=== PATIENT | male | born 1970 | race African-American/Black ===

== ENCOUNTER 2018-09-17 19:31 | Inpatient (IN) | END 2018-09-25 15:10 | disposition home or self-care (01) | DRG 439 ==

== ENCOUNTER 2018-10-13 12:00 | Inpatient (IN) | END 2018-10-16 15:00 | disposition home or self-care (01) | DRG 196 ==

== ENCOUNTER 2019-01-09 16:48 | Inpatient (IN) | payer BC ==
[~2019-01-09] VITALS: Ht 180.3 cm; Wt 72.8 kg
[~2019-01-09 16:48] MED LIST: ALBU18HF INHALATION; LISI10TA2 PO; PRED20TA PO
[2019-01-09] MEDS ORDERED: SODIUM CHLORIDE 0.9% 1L BAG IV* STA (17:26)
[2019-01-09] MEDS ORDERED: METHYLPREDNISOLONE 125 MG INJ IV STA (17:28)
[2019-01-09] MEDS ORDERED: IPRATROPIUM (NEB) 0.5 MG/2.5 ML AMP INH STA (17:28)
[2019-01-09] MEDS ORDERED: ALBUTEROL 0.5% (NEB) 2.5 MG/0.5 ML AMP INH STA (17:28)
[2019-01-09] MEDS ORDERED: CEFTRIAXONE 1 GM/50 ML (PMX) 50 ML IVPB ONE (17:30)
[2019-01-09] MEDS ORDERED: IBUPROFEN 600 MG TAB PO ONE (17:30)
[2019-01-09] MEDS ORDERED: LORAZEPAM 0.5 MG TAB PO ONE (17:30)
--- NOTE | 2019-01-09 17:41 | ERD ---
ER Documentation Chief Complaint Chief Complaint WHEEZING, SOB, COUGH, HX OF ASTHMA HPI 48-year-old man with a history of right apical pneumonia, sarcoidosis, and asthma presents with cough, shortness of breath, congestion times 1 week. He states he has had tactile fevers. He denies recent travel or antibiotic use, no calf or leg swelling, no chest pain, no headache or blurry vision, no vomiting or diarrhea. ROS All systems reviewed and are negative except as per history of present illness. Medications Home Meds Reported Medications Albuterol Sulfate* (Ventolin HFA*) 18 Gm Hfa.aer.ad, 2 PUFF INHALATION Q4H, #1 INHALER 10/13/18 Lisinopril* (Lisinopril*) 10 Mg Tablet, 10 MG PO DAILY, #30 TAB 10/13/18 Prednisone* (Prednisone*) 20 Mg Tab, 20 MG PO DAILY, TAB 10/13/18 Allergies Allergies: Coded Allergies: shellfish derived (Verified Allergy, Unknown, 01/09/19) PMhx/Soc Sarcoidosis, history of right-sided pneumothorax, hypertension, alcoholism, pulmonary hypertension, emphysema History of Surgery: Yes (CHEST TUNE PLACEMENT) Anesthesia Reaction: No Hx Neurological Disorder: No Hx Respiratory Disorders: Yes ( ASTHMA, COPD) Hx Cardiac Disorders: Yes (HTN) Hx Psychiatric Problems: No Hx Miscellaneous Medical Probl: No Hx Alcohol Use: Yes (OCCASIONAL) Hx Substance Use: No Hx Tobacco Use: No FmHx Family History: No diabetes Physical Exam Vitals Vital Signs Date Temp Pulse Resp B/P (MAP) Pulse Ox O2 O2 Flow FiO2 Time Delivery Rate 01/09/19 89 30 87 21 18:10 01/09/19 Nasal 17:20 Cannula 01/09/19 101.3 96 24 117/75 98 16:52 (89) Physical Exam GENERAL: Well-developed, well-nourished, appears anxious, febrile HEENT: Moist mucous membranes, pink conjunctiva, no cervical spine tenderness or step-off deformities, no goiter, no jaundice or icterus, extraocular movements intact without pain. No submandibular induration, and no pharyngeal erythema NEURO: Alert and oriented 3, cranial nerves II through XII intact bilaterally, pupils equal round reactive to light, no focal deficits or facial asymmetry, sensation intact distally Strength 5/5 in upper and lower extremities bilaterally CARDIAC: Regular rate and rhythm, no murmurs rubs or gallops LUNGS: Dense wheezes bilaterally, crackles at the bases, no stridor ABDOMEN: Soft nontender, no guarding, no rigidity, no rebound, no psoas sign no obturator sign. Normoactive bowel sounds SKIN: Warm and dry to touch, no abrasions, contusions, or hematomas, no lacerations, no ecchymosis, no target lesions, and without ulcers EXTREMITIES: No clubbing cyanosis or edema, calves are bilaterally symmetrical, no Homans sign, no popliteal cord sign. Distal pulses equal and bilateral PSYCH: Anxious Result Diagram: 01/09/19 1802 01/09/19 180 Results 24 hrs Laboratory Tests Test 01/09/19 18:00 01/09/19 18:02 POC Venous Lactate 0.7 mmol/L White Blood Count 8.1 10^3/ul Red Blood Count 4.10 10^6/ul Hemoglobin 12.6 g/dl Hematocrit 38.5 % Mean Corpuscular Volume 93.9 fl Mean Corpuscular Hemoglobin 30.7 pg Mean Corpuscular Hemoglobin Concent 32.7 g/dl Red Cell Distribution Width 13.5 % Platelet Count 457 10^3/UL Mean Platelet Volume 8.3 fl Immature Granulocytes % 1.000 % Neutrophils % 69.0 % Lymphocytes % 13.0 % Monocytes % 13.0 % Eosinophils % 3.6 % Basophils % 0.4 % Nucleated Red Blood Cells % 0.0 /100WBC Immature Granulocytes # 0.080 10^3/ul Neutrophils # 5.6 10^3/ul Lymphocytes # 1.1 10^3/ul Monocytes # 1.1 10^3/ul Eosinophils # 0.3 10^3/ul Basophils # 0.0 10^3/ul Nucleated Red Blood Cells # 0.0 10^3/ul Prothrombin Time 12.1 Sec Prothrombin Time Ratio 0.9 INR International Normalized Ratio 0.89 Activated Partial Thromboplast Time 35.3 Sec Sodium Level 135 mmol/L Potassium Level 4.0 mmol/L Chloride Level 103 mmol/L Carbon Dioxide Level 23 mmol/L Anion Gap 9 Blood Urea Nitrogen 13 mg/dl Creatinine 0.77 mg/dl Est Glomerular Filtrat Rate mL/min > 60 mL/min Glucose Level 77 mg/dl Calcium Level 8.4 mg/dl Total Bilirubin 0.2 mg/dl Direct Bilirubin 0.00 mg/dl Indirect Bilirubin 0.2 mg/dl Aspartate Amino Transf (AST/SGOT) 20 IU/L Alanine Aminotransferase (ALT/SGPT) 15 IU/L Alkaline Phosphatase 84 IU/L Troponin I < 0.012 ng/ml B-Type Natriuretic Peptide 79 PG/ML Total Protein 6.1 g/dl Albumin 3.2 g/dl Globulin 2.90 g/dl Albumin/Globulin Ratio 1.10 Lipase 62 U/L Ethyl Alcohol Level < 10.0 mg/dl Current Medications Medications Dose Sig/Jian Start Time Status Last (Trade) Ordered Route PRN Stop Time Admin Dose Reason Admin Sodium 2,000 ml BOLUS OVER 2 01/09/19 DC 01/09/19 Chloride HOURS STAT 17:26 18:07 (NS) IV* 01/09/19 17:29 Albuterol 10 mg ONCE STAT 01/09/19 DC 01/09/19 (Proventil INH 17:28 18:09 0.5% (Neb)) 01/09/19 17:31 Ipratropium 1 mg ONCE STAT 01/09/19 DC 01/09/19 [place] INH 17:28 18:09 (Atrovent 01/09/19 17:31 0.02% (Neb)) 125 mg ONCE STAT 01/09/19 DC 01/09/19 Methylprednis IV 17:28 18:07 olone Sodium 01/09/19 17:31 Succinate (Solu-Medrol) Ibuprofen 600 mg ONCE ONCE 01/09/19 DC 01/09/19 (Motrin) PO 17:30 18:08 01/09/19 17:31 Ceftriaxone 50 ml @ ONCE ONCE 01/09/19 DC 01/09/19 Sodium 100 mls/hr IVPB 17:30 18:07 01/09/19 17:59 Lorazepam 0.5 mg ONCE ONCE 01/09/19 DC 01/09/19 (Ativan) PO 17:30 18:08 01/09/19 17:31 Morphine 4 mg ONCE STAT 01/09/19 DC 01/09/19 Sulfate IV 19:02 19:24 (morphine) 01/09/19 19:03 Procedures/MDM IV line was established 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 Patient was febrile, blood and urine cultures have been ordered results are pending I will follow-up. I do not suspect sepsis. EKG performed, read by me revealed a normal sinus rhythm at 87 bpm, normal axis, narrow QRS complex, no concerning ST elevations or depressions noted. Chest X-ray 1V Interpreted by me: Soft Tissue: No acute abnormalities Bones: No acute abnormalities Mediastinum/Cardiac Silhouette/Lungs: Sclerotic densities in the upper lobes bilaterally, no acute infiltrates I administered 2 L normal saline IV, albuterol 10 mg via nebulizer, ipratropium 1 mg via nebulizer, methylprednisolone 125 mg IV x1, ceftriaxone 1 g IV, ibuprofen 600 mg p.o., and later morphine 4 mg IV x1 CBC was unremarkable, electrolytes normal, liver function tests normal, troponin was negative, lactic acid level was low. I do not suspect sepsis. Influenza AB swabs were negative Patient has continued dyspnea and wheezing and will be admitted to telemetry for continued medical management and bronchodilator therapy. Departure Diagnosis: Primary Impression: Sarcoidosis of lung Additional Impressions: Reactive airway disease Asthma severity: severe Asthma persistence: persistent Asthma complication type: with acute exacerbation Qualified Codes: J45.51 - Severe persistent asthma with (acute) exacerbation Hypertension Hypertension type: essential hypertension Qualified Codes: I10 - Essential (primary) hypertension Acute bronchitis Bronchitis organism: unspecified organism Qualified Codes: J20.9 - Acute bronchitis, unspecified Condition: MARK Velasco MD Jan 09, 2019 17:41
[2019-01-09] MEDS ORDERED: morphine 4 MG/ML VIAL IV STA (19:02)
[2019-01-09] MEDS ORDERED: NITROGLYCERIN (SL) 0.4 MG TAB SL PRN (19:30)
[2019-01-09] MEDS ORDERED: ENALAPRILAT 1.25 MG INJ IV ONE (19:30)
[2019-01-09] MEDS ORDERED: ACETAMINOPHEN 325 MG TAB PO PRN (19:30)
[2019-01-09] MEDS ORDERED: NACL 0.9% 3 ML SYG IV SCH (19:30)
[2019-01-09] MEDS ORDERED: ONDANSETRON 4 MG INJ IV PRN (19:30)
[2019-01-09 21:49] VITALS: Ht 180.3 cm; Wt 72.8 kg
[2019-01-09 22:25] VITALS: BP 112/66; PULSE 88; RESP 22
--- NOTE | 2019-01-09 22:39 | HP ---
Date/Time of Note Date/Time of Note DATE: 01/09/19 TIME: 22:39 Assessment/Plan VTE Prophylaxis Pharmacological prophylaxis: heparin Lines/Catheters IV Catheter Type (from Nrsg): Saline Lock Assessment/Plan Assessment/Plan 48-year-old male with a history of sarcoidosis, reactive airway disease, alcoholic pancreatitis and history of spontaneous pneumothorax presents with shortness of breath and found to be hypoxic with chest x-ray showing stable chr onic fibrotic change. PLAN -Supplemental oxygen, bronchodilators, steroid -Pulmonary consult -Continue lisinopril for hypertension Result Diagram: 01/09/19 1802 01/09/19 1802 Results 24hrs Laboratory Tests Test 01/09/19 18:00 01/09/19 18:02 POC Venous Lactate 0.7 White Blood Count 8.1 # Red Blood Count 4.10 L Hemoglobin 12.6 L Hematocrit 38.5 L Mean Corpuscular Volume 93.9 Mean Corpuscular Hemoglobin 30.7 Mean Corpuscular Hemoglobin Concent 32.7 Red Cell Distribution Width 13.5 Platelet Count 457 #H Mean Platelet Volume 8.3 Immature Granulocytes % 1.000 H Neutrophils % 69.0 Lymphocytes % 13.0 L Monocytes % 13.0 H Eosinophils % 3.6 Basophils % 0.4 Nucleated Red Blood Cells % 0.0 Immature Granulocytes # 0.080 H Neutrophils # 5.6 Lymphocytes # 1.1 Monocytes # 1.1 H Eosinophils # 0.3 Basophils # 0.0 Nucleated Red Blood Cells # 0.0 Prothrombin Time 12.1 Prothrombin Time Ratio 0.9 INR International Normalized Ratio 0.89 Activated Partial Thromboplast Time 35.3 H Sodium Level 135 Potassium Level 4.0 Chloride Level 103 Carbon Dioxide Level 23 Anion Gap 9 Blood Urea Nitrogen 13 Creatinine 0.77 Est Glomerular Filtrat Rate mL/min > 60 Glucose Level 77 Calcium Level 8.4 Total Bilirubin 0.2 Direct Bilirubin 0.00 Indirect Bilirubin 0.2 Aspartate Amino Transf (AST/SGOT) 20 Alanine Aminotransferase (ALT/SGPT) 15 Alkaline Phosphatase 84 Troponin I < 0.012 B-Type Natriuretic Peptide 79 Total Protein 6.1 Albumin 3.2 L Globulin 2.90 Albumin/Globulin Ratio 1.10 Lipase 62 Ethyl Alcohol Level < 10.0 H HPI/ROS Admit Date/Time Admit Date/Time Jan 09, 2019 at 19:04 Hx of Present Illness This is a 48-year-old male with a history of sarcoidosis, reactive airway disease, alcoholic pancreatitis, spontaneous pneumothorax who presented to ER complaining of shortness of breath. Patient has chronic shortness of breath but that acutely worsened. In ER, he was hypoxic with the lowest O2 sat of 87% on room air. Chest x-ray shows chronic fibrotic changes predominate within the upper lobes are stable compared to 12/26/2018 without evidence for acute superimposed pneumonia. PMH/Family/Social Past Medical History Medical History: other (See HPI) Medications Current Medications IV Flush (NS 3 ml) 3 ml PER PROTOCOL IV ; Start 01/09/19 at 19:30 Ondansetron HCl (Zofran Inj) 4 mg Q6H PRN IV NAUSEA/VOMITING; Start 01/09/19 at 19:30 Nitroglycerin (Nitroglycerin (Sl Tab) 0.4 Mg) 1 tab Q5M PRN SL .CHEST PAIN; Start 01/09/19 at 19:30 Acetaminophen (Tylenol Tab) 650 mg Q6H PRN PO .PAIN 1-3 OR TEMP; Start 01/09/19 at 19:30 Coded Allergies: shellfish derived (Verified Allergy, Unknown, 01/09/19) Past Surgical History Past Surgical Hx: other (See HPI) Family History Significant Family History: no pertinent family hx Social History Alcohol Use: other (History of EtOH) Smoking Status: Former smoker Drug Use: none Exam/Review of Systems Vital Signs Vitals Vital Signs Date Temp Pulse Resp B/P (MAP) Pulse Ox O2 O2 Flow FiO2 Time Delivery Rate 01/09/19 98.5 88 22 112/66 100 Nasal 2.0 22:25 (81) Cannula 01/09/19 21 18:10 Exam Constitutional: alert, oriented, well developed Head: normocephalic, atraumatic Eyes: EOMI, PERRL Respiratory: diminished breath sounds Cardiovascular: regular rate and rhythm, nl pulses Gastrointestinal: soft, non-tender Extremities: normal pulses RAZA WILSON MD Jan 09, 2019 22:39
[2019-01-09 23:53] VITALS: BP 118/65; RESP 20
[2019-01-10] VITALS (11 sets, daily range): BP systolic 113–135; BP diastolic 64–82; PULSE 55–77; RESP 20–22
[2019-01-10] MEDS: HYDROCODONE/APAP (5/325) TAB PO PRN ×2 (05:30→11:37)
[2019-01-10] MEDS: ALBUTEROL/IPRATROPIUM (NEB) 3 ML AMP HHN PRN ×2 (05:32→09:59)
[2019-01-10] MEDS: LISINOPRIL 10 MG TAB PO SCH (08:27)
[2019-01-10] MEDS ORDERED: METHYLPREDNISOLONE 125 MG INJ IV SCH (09:00)
[2019-01-10] MEDS ORDERED: CEPASTAT LOZENGE MT PRN (13:30)
[2019-01-10] MEDS ORDERED: GUAIFENESIN 20 MG/ML 5ML CUP PO PRN (13:30)
[2019-01-10] MEDS ORDERED: ALBUTEROL/IPRATROPIUM (NEB) 3 ML AMP HHN SCH ×2 (14:00→17:00)
[2019-01-10] MEDS ORDERED: ALBUTEROL/IPRATROPIUM (NEB) 3 ML AMP HHN PRN ×2 (14:00→15:30)
--- NOTE | 2019-01-10 14:00 | PN ---
Date/Time of Note Date/Time of Note DATE: 01/10/19 TIME: 13:55 Assessment/Plan VTE Prophylaxis Risk score (from Ns)>0 risk: 2 SCD applied (from Nsg): Yes Pharmacological prophylaxis: other Lines/Catheters IV Catheter Type (from Nrs): Saline Lock Assessment/Plan Hospital Course S: Patient still with significant shortness of breath and coughing symptoms, slightly relieved with breathing treatment given earlier. Waiting to be seen by pulmonary team. O: VS - see below PE: GENERAL: Well-developed, well-nourished, appears anxious HEENT: Moist mucous membranes, pink conjunctiva, no jaundice or icterus, e xtraocular movements intact without pain. No submandibular induration, and no pharyngeal erythema NEURO: No focal deficits CARDIAC: Regular rate and rhythm, no murmurs rubs or gallops LUNGS: Still some positive wheezes bilaterally, crackles at the bases, no stridor ABDOMEN: Soft nontender, no guarding, no rigidity, no rebound, no psoas sign no obturator sign. Normoactive bowel sounds EXTREMITIES: No lower extremity edema bilaterally PSYCH: Anxious Assessment/Plan: 48-year-old male with a history of sarcoidosis, reactive airway disease, alcoholic pancreatitis and history of spontaneous pneumothorax presents with shortness of breath and found to be hypoxic with chest x-ray showing stable chronic fibrotic change. PLAN -Supplemental oxygen, bronchodilators, steroid, add antitussives -Will obtain pulmonary consult -Continue lisinopril for hypertension Result Diagram: 01/10/1924 01/10/1924 Results 24hrs Laboratory Tests Test 01/09/19 18:00 01/09/19 18:02 01/09/19 22:18 01/10/19 05:24 POC Venous Lactate 0.7 White Blood Count 8.1 # 5.5 # Red Blood Count 4.10 L 3.85 L Hemoglobin 12.6 L 11.9 L Hematocrit 38.5 L 36.9 L Mean Corpuscular 93.9 95.8 Volume Mean Corpuscular 30.7 30.9 Hemoglobin Mean Corpuscular 32.7 32.2 Hemoglobin Concent Red Cell 13.5 13.2 Distribution Width Platelet Count 457 #H 430 H Mean Platelet Volume 8.3 8.6 Immature 1.000 H 0.900 H Granulocytes % Neutrophils % 69.0 86.8 H Lymphocytes % 13.0 L 8.6 L Monocytes % 13.0 H 3.3 Eosinophils % 3.6 0.2 Basophils % 0.4 0.2 Nucleated Red Blood 0.0 0.0 Cells % Immature 0.080 H 0.050 H Granulocytes # Neutrophils # 5.6 4.8 Lymphocytes # 1.1 0.5 L Monocytes # 1.1 H 0.2 L Eosinophils # 0.3 0.0 Basophils # 0.0 0.0 Nucleated Red Blood 0.0 0.0 Cells # Prothrombin Time 12.1 Prothrombin Time 0.9 Ratio INR International 0.89 Normalized Ratio Activated 35.3 H Partial Thromboplast Time Sodium Level 135 136 Potassium Level 4.0 5.2 H Chloride Level 103 106 Carbon Dioxide Level 23 25 Anion Gap 9 5 Blood Urea Nitrogen 13 18 Creatinine 0.77 0.79 Est Glomerular > 60 > 60 Filtrat Rate mL/min Glucose Level 77 192 # Calcium Level 8.4 8.2 L Total Bilirubin 0.2 0.0 L Direct Bilirubin 0.00 0.00 Indirect Bilirubin 0.2 0.0 Aspartate Amino 20 17 Transf (AST/SGOT) Alanine 15 15 Aminotransferase (AL T/SGPT) Alkaline Phosphatase 84 82 Troponin I < 0.012 B-Type Natriuretic 79 Peptide Total Protein 6.1 5.7 L Albumin 3.2 L 2.9 L Globulin 2.90 2.80 Albumin/Globulin 1.10 1.03 Ratio Lipase 62 Ethyl Alcohol Level < 10.0 H Lactic Acid Level 1.6 Hemoglobin A1c 6.1 H Magnesium Level 1.9 Exam/Review of Systems Exam Vitals Vital Signs Date Temp Pulse Resp B/P (MAP) Pulse Ox O2 O2 Flow FiO2 Time Delivery Rate 01/10/19 65 12:00 01/10/19 97.5 22 125/78 95 11:40 (94) 01/10/19 Nasal 2.0 10:03 Cannula 01/09/19 21 18:10 Intake and Output 01/09/19 01/09/19 01/10/19 1414:59 22:59 06:59 IntakeIntake Total 750 ml BalanceBalance 750 ml Results Results 24hrs Laboratory Tests Test 01/09/19 18:00 01/09/19 18:02 01/09/19 22:18 01/10/19 05:24 POC Venous Lactate 0.7 White Blood Count 8.1 # 5.5 # Red Blood Count 4.10 L 3.85 L Hemoglobin 12.6 L 11.9 L Hematocrit 38.5 L 36.9 L Mean Corpuscular 93.9 95.8 Volume Mean Corpuscular 30.7 30.9 Hemoglobin Mean Corpuscular 32.7 32.2 Hemoglobin Concent Red Cell 13.5 13.2 Distribution Width Platelet Count 457 #H 430 H Mean Platelet Volume 8.3 8.6 Immature 1.000 H 0.900 H Granulocytes % Neutrophils % 69.0 86.8 H Lymphocytes % 13.0 L 8.6 L Monocytes % 13.0 H 3.3 Eosinophils % 3.6 0.2 Basophils % 0.4 0.2 Nucleated Red Blood 0.0 0.0 Cells % Immature 0.080 H 0.050 H Granulocytes # Neutrophils # 5.6 4.8 Lymphocytes # 1.1 0.5 L Monocytes # 1.1 H 0.2 L Eosinophils # 0.3 0.0 Basophils # 0.0 0.0 Nucleated Red Blood 0.0 0.0 Cells # Prothrombin Time 12.1 Prothrombin Time 0.9 Ratio INR International 0.89 Normalized Ratio Activated 35.3 H Partial Thromboplast Time Sodium Level 135 136 Potassium Level 4.0 5.2 H Chloride Level 103 106 Carbon Dioxide Level 23 25 Anion Gap 9 5 Blood Urea Nitrogen 13 18 Creatinine 0.77 0.79 Est Glomerular > 60 > 60 Filtrat Rate mL/min Glucose Level 77 192 # Calcium Level 8.4 8.2 L Total Bilirubin 0.2 0.0 L Direct Bilirubin 0.00 0.00 Indirect Bilirubin 0.2 0.0 Aspartate Amino 20 17 Transf (AST/SGOT) Alanine 15 15 Aminotransferase (AL T/SGPT) Alkaline Phosphatase 84 82 Troponin I < 0.012 B-Type Natriuretic 79 Peptide Total Protein 6.1 5.7 L Albumin 3.2 L 2.9 L Globulin 2.90 2.80 Albumin/Globulin 1.10 1.03 Ratio Lipase 62 Ethyl Alcohol Level < 10.0 H Lactic Acid Level 1.6 Hemoglobin A1c 6.1 H Magnesium Level 1.9 Medications Medication Current Medications IV Flush (NS 3 ml) 3 ml PER PROTOCOL IV ; Start 01/09/19 at 19:30 Ondansetron HCl (Zofran Inj) 4 mg Q6H PRN IV NAUSEA/VOMITING; Start 01/09/19 at 19:30 Nitroglycerin (Nitroglycerin (Sl Tab) 0.4 Mg) 1 tab Q5M PRN SL .CHEST PAIN; Start 01/09/19 at 19:30 Acetaminophen (Tylenol Tab) 650 mg Q6H PRN PO .PAIN 1-3 OR TEMP Last ad ministered on 01/10/19at 02:31; Admin Dose 650 MG; Start 01/09/19 at 19:30 Lisinopril (Zestril) 10 mg DAILY PO Last administered on 01/10/19at 08:27; Admin Dose 10 MG; Start 01/10/19 at 09:00 Phenol (Cepastat Lozenge) 1 lozenge Q1H PRN MT SORE THROAT; Start 01/10/19 at 13:30 Guaifenesin (Robitussin Liquid Cup) 200 mg Q4H PRN PO COUGH; Start 01/10/19 at 13:30 Albuterol/ Ipratropium (Duoneb) 3 ml Q2H RESP THERAPY HHN Last administered on 01/10/19at 13:54; Admin Dose 3 ML; Start 01/10/19 at 14:00; Stop 01/11/19 at 07:00 Methylprednisolone Sodium Succinate (Solu-Medrol) 60 mg Q8 IV ; Start 01/10/19 at 17:00 Albuterol/ Ipratropium (Duoneb) 3 ml Q4H RESP THERAPY PRN HHN SHORTNESS OF BREATH; Start 01/10/19 at 14:00 Acetaminophen/ Hydrocodone Bitart (Julian (7.5-325)) 1 tab Q4H PRN PO MODERATE PAIN LEVEL 4-6; Start 01/10/19 at 14:00 JAZIEL LAMBERT Jan 10, 2019 14:00
--- NOTE | 2019-01-10 15:06 | CONS ---
Assessment/Plan Assessment/Plan Assessment/Plan (Daily) IMP: 1. Hypoxemic Resp Insufficiency--in a patient with stage IV sarcoidosis. Unclear trigger, though a tracheobronchitis likely 2. Stage IV sarcoidosis RECS: 1. Oxygen to maintain SpO2 90-92% 2. Solumedrol IV 3. BDs Q4 hours 4. Azithromycin 5. Obtain TTE to al for Pulm HTN 6. Needs PFTs/6MWT as outpatient 7. 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 Denies any recent flu-like symptoms. He states that he has been seen previously at [facility] in [place], however, has not been referred for lung transplantation in [place]. Constitutional: no complaints Eyes: no complaints ENT: no complaints Respiratory: cough, pleuritic pain, shortness of breath Cardiovascular: no complaints Gastrointestinal: no complaints Genitourinary: no complaints Musculoskeletal: no complaints Skin: no complaints Neurologic: no complaints Endocrine: no complaints Psychological: no complaints Past Medical History Pancreatitis Sarcoidosis Medical History: other (See HPI) Home Meds Reported Medications Albuterol Sulfate* (Ventolin HFA*) 18 Gm Hfa.aer.ad, 2 PUFF INHALATION Q4H, #1 INHALER 10/13/18 Lisinopril* (Lisinopril*) 10 Mg Tablet, 10 MG PO DAILY, #30 TAB 10/13/18 Prednisone* (Prednisone*) 20 Mg Tab, 20 MG PO DAILY, TAB 10/13/18 Medications Current Medications IV Flush (NS 3 ml) 3 ml PER PROTOCOL IV ; Start 01/09/19 at 19:30 Ondansetron HCl (Zofran Inj) 4 mg Q6H PRN IV NAUSEA/VOMITING; Start 01/09/19 at 19:30 Nitroglycerin (Nitroglycerin (Sl Tab) 0.4 Mg) 1 tab Q5M PRN SL .CHEST PAIN; Start 01/09/19 at 19:30 Acetaminophen (Tylenol Tab) 650 mg Q6H PRN PO .PAIN 1-3 OR TEMP Last administered on 01/10/19at 02:31; Admin Dose 650 MG; Start 01/09/19 at 19:30 Lisinopril (Zestril) 10 mg DAILY PO Last administered on 01/10/19at 08:27; Admin Dose 10 MG; Start 01/10/19 at 09:00 Phenol (Cepastat Lozenge) 1 lozenge Q1H PRN MT SORE THROAT Last administered on 01/10/19at 14:40; Admin Dose 1 LOZENGE; Start 01/10/19 at 13:30 Guaifenesin (Robitussin Liquid Cup) 200 mg Q4H PRN PO COUGH Last administered on 01/10/19at 14:40; Admin Dose 200 MG; Start 01/10/19 at 13:30 Albuterol/ Ipratropium (Duoneb) 3 ml Q2H RESP THERAPY HHN Last administered on 01/10/19at 13:54; Admin Dose 3 ML; Start 01/10/19 at 14:00; Stop 01/11/19 at 07:00 Methylprednisolone Sodium Succinate (Solu-Medrol) 60 mg Q8 IV ; Start 01/10/19 at 17:00 Albuterol/ Ipratropium (Duoneb) 3 ml Q4H RESP THERAPY PRN HHN SHORTNESS OF BREATH; Start 01/10/19 at 14:00 Acetaminophen/ Hydrocodone Bitart ([place] (7.5-325)) 1 tab Q4H PRN PO MODERATE PAIN LEVEL 4-6; Start 01/10/19 at 14:00 Allergies: Coded Allergies: shellfish derived (Verified Allergy, Unknown, 01/09/19) Past Surgical History Past Surgical Hx: no surgical history, other (See HPI) Family History Significant Family History: no pertinent family hx Social History Alcohol Use: other (History of EtOH) Smoking Status: Former smoker Drug Use: none Exam/Review of Systems Exam Vitals Vital Signs Date Temp Pulse Resp B/P (MAP) Pulse Ox O2 O2 Flow FiO2 Time Delivery Rate 01/10/19 48 24 Nasal 2.0 13:58 Cannula 01/10/19 97.5 125/78 95 11:40 (94) 01/09/19 21 18:10 Intake and Output 3/01/09/19 01/10/19 1515:00 23:00 07:00 IntakeIntake Total 750 ml BalanceBalance 750 ml Constitutional: alert, oriented, well developed Psych: no complaints, nl mood/affect, anxiety Eyes: nl conjunctiva, EOMI, nl lids ENMT: nl external ears & nose, nl lips & teeth, nl nasal mucosa & septum, mucosa pink and moist Neck: supple, non-tender Respiratory: crackles/rales Cardiovascular: regular rate and rhythm, jugular venous distention (JVD), systolic murmur Gastrointestinal: soft, nl liver, spleen, non-tender Musculoskeletal: nl extremities to inspection Extremities: normal pulses, clubbing Neurological: IT TRAINER II-XII intact Results Result Diagram: 01/10/1952301/10/19523 Results 24hrs Laboratory Tests Test 01/09/19 18:00 01/09/19 18:02 01/09/19 22:18 01/10/19 05:24 POC Venous Lactate 0.7 White Blood Count 8.1 # 5.5 # Red Blood Count 4.10 L 3.85 L Hemoglobin 12.6 L 11.9 L Hematocrit 38.5 L 36.9 L Mean Corpuscular 93.9 95.8 Volume Mean Corpuscular 30.7 30.9 Hemoglobin Mean Corpuscular 32.7 32.2 Hemoglobin Concent Red Cell 13.5 13.2 Distribution Width Platelet Count 457 #H 430 H Mean Platelet Volume 8.3 8.6 Immature 1.000 H 0.900 H Granulocytes % Neutrophils % 69.0 86.8 H Lymphocytes % 13.0 L 8.6 L Monocytes % 13.0 H 3.3 Eosinophils % 3.6 0.2 Basophils % 0.4 0.2 Nucleated Red Blood 0.0 0.0 Cells % Immature 0.080 H 0.050 H Granulocytes # Neutrophils # 5.6 4.8 Lymphocytes # 1.1 0.5 L Monocytes # 1.1 H 0.2 L Eosinophils # 0.3 0.0 Basophils # 0.0 0.0 Nucleated Red Blood 0.0 0.0 Cells # Prothrombin Time 12.1 Prothrombin Time 0.9 Ratio INR International 0.89 Normalized Ratio Activated 35.3 H Partial Thromboplast Time Sodium Level 135 136 Potassium Level 4.0 5.2 H Chloride Level 103 106 Carbon Dioxide Level 23 25 Anion Gap 9 5 Blood Urea Nitrogen 13 18 Creatinine 0.77 0.79 Est Glomerular > 60 > 60 Filtrat Rate mL/min Glucose Level 77 192 # Calcium Level 8.4 8.2 L Total Bilirubin 0.2 0.0 L Direct Bilirubin 0.00 0.00 Indirect Bilirubin 0.2 0.0 Aspartate Amino 20 17 Transf (AST/SGOT) Alanine 15 15 Aminotransferase (AL T/SGPT) Alkaline Phosphatase 84 82 Troponin I < 0.012 B-Type Natriuretic 79 Peptide Total Protein 6.1 5.7 L Albumin 3.2 L 2.9 L Globulin 2.90 2.80 Albumin/Globulin 1.10 1.03 Ratio Lipase 62 Ethyl Alcohol Level < 10.0 H Lactic Acid Level 1.6 Hemoglobin A1c 6.1 H Magnesium Level 1.9 Medications Medication Current Medications IV Flush (NS 3 ml) 3 ml PER PROTOCOL IV ; Start 01/09/19 at 19:30 Ondansetron HCl (Zofran Inj) 4 mg Q6H PRN IV NAUSEA/VOMITING; Start 01/09/19 at 19:30 Nitroglycerin (Nitroglycerin (Sl Tab) 0.4 Mg) 1 tab Q5M PRN SL .CHEST PAIN; Start 01/09/19 at 19:30 Acetaminophen (Tylenol Tab) 650 mg Q6H PRN PO .PAIN 1-3 OR TEMP Last administered on 01/10/19 02:31; Admin Dose 650 MG; Start 01/09/19 at 19:30 Lisinopril (Zestril) 10 mg DAILY PO Last administered on 01/10/19 08:27; Admin Dose 10 MG; Start 01/10/19 at 09:00 Phenol (Cepastat Lozenge) 1 lozenge Q1H PRN MT SORE THROAT Last administered on 01/10/19 14:40; Admin Dose 1 LOZENGE; Start 01/10/19 at 13:30 Guaifenesin (Robitussin Liquid Cup) 200 mg Q4H PRN PO COUGH Last administered on 01/10/19 14:40; Admin Dose 200 MG; Start 01/10/19 at 13:30 Albuterol/ Ipratropium (Duoneb) 3 ml Q2H RESP THERAPY HHN Last administered on 01/10/19 13:54; Admin Dose 3 ML; Start 01/10/19 at 14:00; Stop 01/11/19 at 07:00 Methylprednisolone Sodium Succinate (Solu-Medrol) 60 mg Q8 IV ; Start 01/10/19 at 17:00 Albuterol/ Ipratropium (Duoneb) 3 ml Q4H RESP THERAPY PRN HHN SHORTNESS OF BREATH; Start 01/10/19 at 14:00 Acetaminophen/ Hydrocodone Bitart ([place] (7.5-325)) 1 tab Q4H PRN PO MODERATE PAIN LEVEL 4-6; Start 01/10/19 at 14:00 JAY MONTGOMERY MD Jan 10, 2019 15:06
[2019-01-10] MEDS: ALBUTEROL/IPRATROPIUM (NEB) 3 ML AMP HHN SCH ×2 (16:35→19:58)
[2019-01-10] MEDS: AZITHROMYCIN 250 MG in SOD CHLORIDE 0.9% 250 ML IVPB SCH (17:29)
[2019-01-10] MEDS: METHYLPREDNISOLONE 125 MG INJ IV SCH ×2 (17:30→22:51)
[2019-01-10] MEDS: HYDROCODONE/APAP (7.5/325) TAB PO PRN ×2 (17:33→21:51)
[2019-01-10] MEDS ORDERED: DIPHENHYDRAMINE 25 MG CAP PO PRN (22:00)
[2019-01-11] VITALS (11 sets, daily range): BP systolic 125–152; BP diastolic 75–81; PULSE 49–69; RESP 19–22
[2019-01-11] MEDS: ALBUTEROL/IPRATROPIUM (NEB) 3 ML AMP HHN SCH ×6 (00:36→20:21)
[2019-01-11] MEDS: METHYLPREDNISOLONE 125 MG INJ IV SCH ×3 (06:08→20:44)
[2019-01-11] MEDS: LISINOPRIL 10 MG TAB PO SCH (08:08)
[2019-01-11] MEDS: HYDROCODONE/APAP (7.5/325) TAB PO PRN (09:50)
[2019-01-11] MEDS: morphine 2 MG INJ IV PRN ×2 (13:19→20:54)
--- NOTE | 2019-01-11 14:45 | CONS ---
Consult Date/Type/Reason Admit Date/Time Jan 09, 2019 at 19:04 Initial Consult Date 01/10/19 Type of Consultation: Pulm Date/Time of Note DATE: 01/11/19 TIME: 14:43 Subjective Feeling better though still dyspneic Objective Vitals Vital Signs Date Temp Pulse Resp B/P (MAP) Pulse Ox O2 O2 Flow FiO2 Time Delivery Rate 01/11/19 52 12:07 01/11/19 98.0 21 125/80 96 Room Air 11:06 (95) 01/11/19 2.0 09:02 01/09/19 21 18:10 Intake and Output 01/10/19 01/10/19 01/11/19 1515:00 23:00 07:00 IntakeIntake Total 1180 ml OutputOutput Total 600 ml BalanceBalance -600 ml 1180 ml Exam HEENT: Neck supple; no JVD; no LAD CVS: RRR, S1 and S2 CHEST: Bilateral rales ABD: Soft, NT, + BS EXT: +++ clubbing Results/Medications Result Diagram: 01/11/19 0509 01/11/19 0509 Results 24 hrs Laboratory Tests Test 01/11/19 05:09 White Blood Count 9.1 # Red Blood Count 3.47 L Hemoglobin 10.8 L Hematocrit 33.1 L Mean Corpuscular Volume 95.4 Mean Corpuscular Hemoglobin 31.1 Mean Corpuscular Hemoglobin Concent 32.6 Red Cell Distribution Width 13.2 Platelet Count 457 H Mean Platelet Volume 8.6 Immature Granulocytes % 0.800 H Neutrophils % 90.4 H Lymphocytes % 4.6 L Monocytes % 4.1 Eosinophils % 0.0 Basophils % 0.1 Nucleated Red Blood Cells % 0.0 Immature Granulocytes # 0.070 H Neutrophils # 8.2 H Lymphocytes # 0.4 L Monocytes # 0.4 Eosinophils # 0.0 Basophils # 0.0 Nucleated Red Blood Cells # 0.0 Sodium Level 139 Potassium Level 4.3 Chloride Level 106 Carbon Dioxide Level 26 Anion Gap 7 Blood Urea Nitrogen 16 Creatinine 0.69 Est Glomerular Filtrat Rate mL/min > 60 Glucose Level 167 Calcium Level 8.3 L Phosphorus Level 2.6 Magnesium Level 2.0 Triglycerides Level 110 Cholesterol Level 133 LDL Cholesterol, Calculated 77 HDL Cholesterol 34 Cholesterol/HDL Ratio 3.9 Home Meds Reported Medications Albuterol Sulfate* (Ventolin HFA*) 18 Gm Hfa.aer.ad, 2 PUFF INHALATION Q4H, #1 INHALER 10/13/18 Lisinopril* (Lisinopril*) 10 Mg Tablet, 10 MG PO DAILY, #30 TAB 10/13/18 Prednisone* (Prednisone*) 20 Mg Tab, 20 MG PO DAILY, TAB 10/13/18 Medications Current Medications IV Flush (NS 3 ml) 3 ml PER PROTOCOL IV ; Start 01/09/19 at 19:30 Nitroglycerin (Nitroglycerin (Sl Tab) 0.4 Mg) 1 tab Q5M PRN SL .CHEST PAIN; Start 01/09/19 at 19:30 Acetaminophen (Tylenol Tab) 650 mg Q6H PRN PO .PAIN 1-3 OR TEMP Last administered on 01/10/19at 02:31; Admin Dose 650 MG; Start 01/09/19 at 19:30 Lisinopril (Zestril) 10 mg DAILY PO Last administered on 01/11/19 08:08; Admin Dose 10 MG; Start 01/10/19 at 09:00 Phenol (Cepastat Lozenge) 1 lozenge Q1H PRN MT SORE THROAT Last administered on 01/10/19 14:40; Admin Dose 1 LOZENGE; Start 01/10/19 at 13:30 Guaifenesin (Robitussin Liquid Cup) 200 mg Q4H PRN PO COUGH Last administered on 01/10/19 14:40; Admin Dose 200 MG; Start 01/10/19 at 13:30 Methylprednisolone Sodium Succinate (Solu-Medrol) 60 mg Q8 IV Last administered on 01/11/19at 13:25; Admin Dose 60 MG; Start 01/10/19 at 17:00 Acetaminophen/ Hydrocodone Bitart ([place] (7.5-325)) 1 tab Q4H PRN PO MODERATE PAIN LEVEL 4-6 Last administered on 01/11/19 09:50; Admin Dose 1 TAB; Start 01/10/19 at 14:00 Albuterol/ Ipratropium (Duoneb) 3 ml Q2H RESP THERAPY PRN HHN SHORTNESS OF BREATH; Start 01/10/19 at 15:30 Albuterol/ Ipratropium (Duoneb) 3 ml Q4H RESP THERAPY HHN Last administered on 01/11/19 09:02; Admin Dose 3 ML; Start 01/10/19 at 17:00 Azithromycin 250 mg/Sodium Chloride 250 ml @ 250 mls/hr Q24H IVPB Last administered on 01/10/19 17:29; Admin Dose 250 MLS/HR; Start 01/10/19 at 16:30 Diphenhydramine HCl (Benadryl) 25 mg Q6H PRN PO ITCHING Last administered on 01/10/19 22:51; Admin Dose 25 MG; Start 01/10/19 at 22:00 Morphine Sulfate (morphine) 1 mg Q4H PRN IV SEVERE PAIN LEVEL 7-10 Last administered on 01/11/19 13:19; Admin Dose 1 MG; Start 01/11/19 at 10:30 Assessment/Plan Assessment/Plan (Daily) IMP: 1. Hypoxemic Resp Insufficiency--in a patient with stage IV sarcoidosis. Unclear trigger, though a tracheobronchitis likely 2. Stage IV sarcoidosis RECS: 1. Oxygen to maintain SpO2 90-92% 2. Solumedrol IV--> taper 3. BDs Q4 hours 4. Azithromycin 5. Obtain TTE to eval for Pulm HTN 6. Needs PFTs/6MWT as outpatient 7. NEEDS referral for lung transplantation upon discharge JAY MONTGOMERY MD Jan 11, 2019 14:45
[2019-01-11] MEDS: AZITHROMYCIN 250 MG in SOD CHLORIDE 0.9% 250 ML IVPB SCH (17:14)
[2019-01-12] VITALS (10 sets, daily range): BP systolic 145–164; BP diastolic 85–92; PULSE 53–68; RESP 18–20
[2019-01-12] MEDS: ALBUTEROL/IPRATROPIUM (NEB) 3 ML AMP HHN SCH ×6 (01:38→21:57)
[2019-01-12] MEDS: morphine 2 MG INJ IV PRN ×3 (07:46→20:23)
[2019-01-12] MEDS: METHYLPREDNISOLONE 125 MG INJ IV SCH ×2 (08:49→20:21)
[2019-01-12] MEDS: LISINOPRIL 10 MG TAB PO SCH (08:50)
--- NOTE | 2019-01-12 09:46 | PN ---
Date/Time of Note Date/Time of Note DATE: 01/12/19 TIME: 09:45 Assessment/Plan VTE Prophylaxis Risk score (from Nsg)>0 risk: 2 SCD applied (from Nsg): Yes Pharmacological prophylaxis: LMWH Lines/Catheters IV Catheter Type (from Nrs): Saline Lock Assessment/Plan Hospital Course SUBJECTIVE: Lying in bed, having mild respiratory distress. OBJECTIVE: Vital signs-see below PHYSICAL EXAM: Constitutional: frail looking AA male, lying in bed comfortably. Psych: nl mood/affect, no complaints Head: atraumatic, normocephalic Eyes: nl conjunctiva, nl sclera ENMT: mucosa pink and moist, nl external ears & nose Neck: non-tender, supple Respiratory: +Rales bilaterally. Cardiovascular: nl pulses, regular rate and rhythm Gastrointestinal: non-tender, soft, bowel sounds active in all 4 quadrants. Musculoskeletal/extremities: nl extremities to inspection, motor strength equal bilaterally, no focal deficit. Normal pulses,no cyanosis, no edema. Neurological: Alert oriented 3,nl speech, nl strength Skin: nl turgor ASSESSMENT/PLAN: 48-year-old male with a history of sarcoidosis,htn,asthma,here w/ resp fx.. 1. Hypoxemic respiratory failure in light of advanced lung sarcoidosis -Continue breathing treatments, tapering dose of steroids. 2. Stage IV lung sarcoidosis. -Appreciate pulmonary recommendation, needs PFTs, /6MWT as outpatient=> referral for lung transplantation on discharge. 3. Hypertension -table. Continue lisinopril. 4. Prediabetes, A1c 6.1. -Patient with hyperglycemia, likely secondary to receiving IV steroids. I will put patient on rating scale insulin and NPH insulin linked with steroid. -Advised on carbohydrate controlled diet. 5. Chronic anemia. -stable HH 6. Possible homelessness. -SW to the patient. DVT prophylaxis: Lovenox. PUD prophylaxis: Not indicated CODE STATUS: Full code Diet: Carbohydrate controlled. Disposition: Continue current management. Await for improvement in respiratory status. Follow pulmonary recommendations. Patient was seen in collaboration with Dr. Brady. Result Diagram: 01/11/19 0500 01/11/19 0509 Exam/Review of Systems Exam Vitals Vital Signs Date Temp Pulse Resp B/P (MAP) Pulse Ox O2 O2 Flow FiO2 Time Delivery Rate 01/12/19 62 08:50 01/12/19 Nasal 2.0 07:47 Cannula 01/12/19 97.6 18 157/91 94 07:28 (113) 01/11/19 27 20:22 Intake and Output 01/11/19 01/11/19 01/12/19 1414:59 22:59 06:59 IntakeIntake Total 1160 ml 750 ml OutputOutput Total 550 ml BalanceBalance 1160 ml 200 ml Medications Medication Current Medications IV Flush (NS 3 ml) 3 ml PER PROTOCOL IV ; Start 01/09/19 at 19:30 Nitroglycerin (Nitroglycerin (Sl Tab) 0.4 Mg) 1 tab Q5M PRN SL .CHEST PAIN; Start 01/09/19 at 19:30 Acetaminophen (Tylenol Tab) 650 mg Q6H PRN PO .PAIN 1-3 OR TEMP Last administered on 01/10/19at 02:31; Admin Dose 650 MG; Start 01/09/19 at 19:30 Lisinopril (Zestril) 10 mg DAILY PO Last administered on 01/12/19at 08:50; Admin Dose 10 MG; Start 01/10/19 at 09:00 Phenol (Cepastat Lozenge) 1 lozenge Q1H PRN MT SORE THROAT Last administered on 01/10/19 14:40; Admin Dose 1 LOZENGE; Start 01/10/19 at 13:30 Guaifenesin (Robitussin Liquid Cup) 200 mg Q4H PRN PO COUGH Last administered on 01/10/19 14:40; Admin Dose 200 MG; Start 01/10/19 at 13:30 Acetaminophen/ Hydrocodone Bitart ([place] (7.5-325)) 1 tab Q4H PRN PO MODERATE PAIN LEVEL 4-6 Last administered on 01/11/19 09:50; Admin Dose 1 TAB; Start 01/10/19 at 14:00 Albuterol/ Ipratropium (Duoneb) 3 ml Q2H RESP THERAPY PRN HHN SHORTNESS OF BREATH; Start 01/10/19 at 15:30 Albuterol/ Ipratropium (Duoneb) 3 ml Q4H RESP THERAPY HHN Last administered on 01/12/19at 01:38; Admin Dose 3 ML; Start 01/10/19 at 17:00 Azithromycin 250 mg/Sodium Chloride 250 ml @ 250 mls/hr Q24H IVPB Last administered on 01/11/19 17:14; Admin Dose 250 MLS/HR; Start 01/10/19 at 16:30 Diphenhydramine HCl (Benadryl) 25 mg Q6H PRN PO ITCHING Last administered on 01/10/19 22:51; Admin Dose 25 MG; Start 01/10/19 at 22:00 Morphine Sulfate (morphine) 1 mg Q4H PRN IV SEVERE PAIN LEVEL 7-10 Last administered on 01/12/19 07:46; Admin Dose 1 MG; Start 01/11/19 at 10:30 Methylprednisolone Sodium Succinate (Solu-Medrol) 60 mg BID IV Last administered on 01/12/19 08:49; Admin Dose 60 MG; Start 01/11/19 at 21:00 MIRTHA FAIRCHILD NP Jan 12, 2019 09:46
[2019-01-12] MEDS ORDERED: GLUCOSE GEL 15 GRAM TUBE PO PRN ×2 (10:00)
[2019-01-12] MEDS ORDERED: GLUCAGON 1 MG INJ IM PRN (10:00)
[2019-01-12] MEDS ORDERED: GLUCOSE GEL 15 GRAM TUBE BUCCAL PRN (10:00)
[2019-01-12] MEDS ORDERED: DEXTROSE 50% 50 ML SYRINGE IV PRN ×2 (10:00)
[2019-01-12] MEDS: NPH, HUMAN INSULIN ISOPHANE 3ML VIAL SC SCH ×2 (10:43→20:00)
[2019-01-12] MEDS: ENOXAPARIN 40 MG/0.4 ML SYG SC SCH (10:44)
[2019-01-12] MEDS: INSULIN ASPART [NOVOLOG] 3 ML PEN SC SCH ×3 (12:14→20:22)
--- NOTE | 2019-01-12 12:36 | PN ---
Date/Time of Note Date/Time of Note LATE ENTRY: DATE pt seen: 01/11/19 Assessment/Plan VTE Prophylaxis Risk score (from Nsg)>0 risk: 2 SCD applied (from Nsg): Yes Pharmacological prophylaxis: other Lines/Catheters IV Catheter Type (from Nrsg): Saline Lock Assessment/Plan Hospital Course S: Patient seen by pulm team yesterday, slightly improved SOB smpts. O: VS - see below PE: GENERAL: Well-developed, well-nourished, appears anxious HEENT: Moist mucous membranes, pink conjunctiva, no jaundice or icterus, extraocular movements intact without pain. NEURO: No focal deficits CARDIAC: Regular rate and rhythm, no murmurs rubs or gallops LUNGS: mild positive wheezes bilaterally, crackles at the bases, no stridor ABDOMEN: Soft nontender, no guarding, no rigidity, no rebound, no psoas sign no obturator sign. Normoactive bowel sounds EXTREMITIES: No lower extremity edema bilaterally PSYCH: less anxious Assessment/Plan: 48-year-old male with a history of sarcoidosis, reactive airway disease, alcoholic pancreatitis and history of spontaneous pneumothorax presents with shortness of breath and found to be hypoxic with chest x-ray showing stable chronic fibrotic change. PLAN - per pulm team , pt has stage IV sarcoidosis. Unclear trigger, though a tracheobronchitis likely - continue Supplemental oxygen, bronchodilators, steroid, antitussives -f/u further rec's from pulmonary consult - lisinopril for hypertension Result Diagram: 01/11/19 0509 01/11/19 0509 Results 24hrs Laboratory Tests Test 01/12/19 10:38 01/12/19 12:07 Bedside Glucose 210 148 Exam/Review of Systems Exam Vitals Vital Signs Date Temp Pulse Resp B/P (MAP) Pulse Ox O2 O2 Flow FiO2 Time Delivery Rate 01/12/19 57 12:22 01/12/19 97.6 18 158/92 94 Nasal 11:21 (114) Cannula 01/12/19 2.0 09:29 01/11/19 27 20:22 Intake and Output 01/11/19 01/11/19 01/12/19 1515:00 23:00 07:00 IntakeIntake Total 1160 ml 750 ml OutputOutput Total 550 ml BalanceBalance 1160 ml 200 ml Results Results 24hrs Laboratory Tests Test 01/12/19 10:38 01/12/19 12:07 Bedside Glucose 210 148 Medications Medication Current Medications IV Flush (NS 3 ml) 3 ml PER PROTOCOL IV ; Start 01/09/19 at 19:30 Nitroglycerin (Nitroglycerin (Sl Tab) 0.4 Mg) 1 tab Q5M PRN SL .CHEST PAIN; Start 01/09/19 at 19:30 Acetaminophen (Tylenol Tab) 650 mg Q6H PRN PO .PAIN 1-3 OR TEMP Last administered on 01/10/19 02:31; Admin Dose 650 MG; Start 01/09/19 at 19:30 Lisinopril (Zestril) 10 mg DAILY PO Last administered on 01/12/19 08:50; Admin Dose 10 MG; Start 01/10/19 at 09:00 Phenol (Cepastat Lozenge) 1 lozenge Q1H PRN MT SORE THROAT Last administered on 01/10/19 14:40; Admin Dose 1 LOZENGE; Start 01/10/19 at 13:30 Guaifenesin (Robitussin Liquid Cup) 200 mg Q4H PRN PO COUGH Last administered on 01/10/19 14:40; Admin Dose 200 MG; Start 01/10/19 at 13:30 Acetaminophen/ Hydrocodone Bitart ([place] (7.5-325)) 1 tab Q4H PRN PO MODERATE PAIN LEVEL 4-6 Last administered on 01/11/19 09:50; Admin Dose 1 TAB; Start 01/10/19 at 14:00 Albuterol/ Ipratropium (Duoneb) 3 ml Q2H RESP THERAPY PRN HHN SHORTNESS OF BREATH; Start 01/10/19 at 15:30 Albuterol/ Ipratropium (Duoneb) 3 ml Q4H RESP THERAPY HHN Last administered on 01/12/19 09:23; Admin Dose 3 ML; Start 01/10/19 at 17:00 Azithromycin 250 mg/Sodium Chloride 250 ml @ 250 mls/hr Q24H IVPB Last administered on 01/11/19 17:14; Admin Dose 250 MLS/HR; Start 01/10/19 at 16:30 Diphenhydramine HCl (Benadryl) 25 mg Q6H PRN PO ITCHING Last administered on 3/16/19at 22:51; Admin Dose 25 MG; Start 01/10/19 at 22:00 Morphine Sulfate (morphine) 1 mg Q4H PRN IV SEVERE PAIN LEVEL 7-10 Last administered on 01/12/19at 07:46; Admin Dose 1 MG; Start 01/11/19 at 10:30 Diagnostic Test (Pha) (Accu-Chek) 1 ea 02 XX ; Start 01/13/19 at 02:00 Insulin Aspart (Novolog Insulin Pen) NOVOLOG *MILD* ALGORITHM WITH MEALS BEDTIME SC Last administered on 01/12/19at 12:14; Admin Dose 1 UNIT; Start 01/12/19 at 12:00 Insulin Human NPH (Humulin N) 14 unit BID@08,20 SC Last administered on 01/12/19 10:43; Admin Dose 14 UNIT; Start 01/12/19 at 10:30 Miscellaneous Information (* Miscellaneous Pharmacy Order) NPH order has been placed ... ONCE XX ; Start 01/12/19 at 10:00 Miscellaneous Information 1 ea NOTE XX ; Start 01/12/19 at 10:00 Glucose (Glutose) 15 gm Q15M PRN PO DECREASED GLUCOSE; Start 01/12/19 at 10:00 Glucose (Glutose) 22.5 gm Q15M PRN PO DECREASED GLUCOSE; Start 01/12/19 at 10:00 Dextrose (D50w Syringe) 25 ml Q15M PRN IV DECREASED GLUCOSE; Start 01/12/19 at 10:00 Dextrose (D50w Syringe) 50 ml Q15M PRN IV DECREASED GLUCOSE; Start 01/12/19 at 10:00 Glucagon (Glucagen) 1 mg Q15M PRN IM DECREASED GLUCOSE; Start 01/12/19 at 10:00 Glucose (Glutose) 15 gm Q15M PRN BUCCAL DECREASED GLUCOSE; Start 01/12/19 at 10:00 Enoxaparin Sodium (Lovenox) 40 mg DAILY SC Last administered on 01/12/19at 10:44; Admin Dose 40 MG; Start 01/12/19 at 10:00 Methylprednisolone Sodium Succinate (Solu-Medrol) 60 mg 0800,2000 IV ; Start 01/12/19 at 20:00 JAZIEL LAMBERT 18, 2019 12:36
--- NOTE | 2019-01-12 14:16 | CONS ---
Consult Date/Type/Reason Admit Date/Time Jan 09, 2019 at 19:04 Initial Consult Date 01/10/19 Type of Consult Pulmonary Date/Time of Note DATE: 01/12/19 TIME: 14:12 Subjective Still feeling short of breath this morning. Objective Vital Signs Date Temp Pulse Resp B/P (MAP) Pulse Ox O2 O2 Flow FiO2 Time Delivery Rate 01/12/19 94 2.0 13:15 01/12/19 51 20 Nasal 13:13 Cannula 01/12/19 97.6 158/92 11:21 (114) 01/11/19 27 20:22 Intake and Output 01/11/19 01/11/19 01/12/19 1515:00 23:00 07:00 IntakeIntake Total 1160 ml 750 ml OutputOutput Total 550 ml BalanceBalance 1160 ml 200 ml Exam GENERAL: Thin -Bhut[place] gentleman appears comfortable at rest no acute distress VITAL SIGNS: per chart NECK: Supple. No JVD or lymphadenopathy. CARDIAC EXAM: S1, S2. No added sounds or murmurs. CHEST: clear bilaterally, No added sounds, rales or wheezes ABDOMEN: Soft, nontender. No guarding or rebound. EXTREMITIES: No cyanosis, clubbing or edema. NEUROLOGIC: Generalized weakness. No focal deficits. Vent Setting Fraction of Inspired Oxygen pe: 27 Results/Medications Result Diagram: 01/11/19 0509 01/11/19 0509 Results 24 hrs Laboratory Tests Test 01/12/19 10:38 01/12/19 12:07 Bedside Glucose 210 148 Medications Current Medications IV Flush (NS 3 ml) 3 ml PER PROTOCOL IV ; Start 01/09/19 at 19:30 Nitroglycerin (Nitroglycerin (Sl Tab) 0.4 Mg) 1 tab Q5M PRN SL .CHEST PAIN; Start 01/09/19 at 19:30 Acetaminophen (Tylenol Tab) 650 mg Q6H PRN PO .PAIN 1-3 OR TEMP Last administered on 01/10/19at 02:31; Admin Dose 650 MG; Start 01/09/19 at 19:30 Lisinopril (Zestril) 10 mg DAILY PO Last administered on 01/12/19at 08:50; Admin Dose 10 MG; Start 01/10/19 at 09:00 Phenol (Cepastat Lozenge) 1 lozenge Q1H PRN MT SORE THROAT Last administered on 01/10/19 14:40; Admin Dose 1 LOZENGE; Start 01/10/19 at 13:30 Guaifenesin (Robitussin Liquid Cup) 200 mg Q4H PRN PO COUGH Last administered on 01/10/19 14:40; Admin Dose 200 MG; Start 01/10/19 at 13:30 Acetaminophen/ Hydrocodone Bitart ([place] (7.5-325)) 1 tab Q4H PRN PO MODERATE PAIN LEVEL 4-6 Last administered on 01/11/19 09:50; Admin Dose 1 TAB; Start at 14:00 Albuterol/ Ipratropium (Duoneb) 3 ml Q2H RESP THERAPY PRN HHN SHORTNESS OF BREATH; Start 01/10/19 at 15:30 Albuterol/ Ipratropium (Duoneb) 3 ml Q4H RESP THERAPY HHN Last administered on 01/12/19 13:11; Admin Dose 3 ML; Start 01/10/19 at 17:00 Azithromycin 250 mg/Sodium Chloride 250 ml @ 250 mls/hr Q24H IVPB Last administered on 01/11/19 17:14; Admin Dose 250 MLS/HR; Start 01/10/19 at 16:30 Diphenhydramine HCl (Benadryl) 25 mg Q6H PRN PO ITCHING Last administered on 01/10/19 22:51; Admin Dose 25 MG; Start 01/10/19 at 22:00 Morphine Sulfate (morphine) 1 mg Q4H PRN IV SEVERE PAIN LEVEL 7-10 Last administered on 01/12/19 12:39; Admin Dose 1 MG; Start 01/11/19 at 10:30 Diagnostic Test (Pha) (Accu-Chek) 1 ea 02 XX ; Start 01/13/19 at 02:00 Insulin Aspart (Novolog Insulin Pen) NOVOLOG *MILD* ALGORITHM WITH MEALS BEDTIME SC Last administered on 01/12/19 12:14; Admin Dose 1 UNIT; Start 01/12/19 at 12:00 Insulin Human NPH (Humulin N) 14 unit BID@08,20 SC Last administered on 01/12/19 10:43; Admin Dose 14 UNIT; Start 01/12/19 at 10:30 Miscellaneous Information (* Miscellaneous Pharmacy Order) NPH order has been placed ... ONCE XX ; Start 01/12/19 at 10:00 Miscellaneous Information 1 ea NOTE XX ; Start 01/12/19 at 10:00 Glucose (Glutose) 15 gm Q15M PRN PO DECREASED GLUCOSE; Start 01/12/19 at 10:00 Glucose (Glutose) 22.5 gm Q15M PRN PO DECREASED GLUCOSE; Start 01/12/19 at 10:00 Dextrose (D50w Syringe) 25 ml Q15M PRN IV DECREASED GLUCOSE; Start 01/12/19 at 10:00 Dextrose (D50w Syringe) 50 ml Q15M PRN IV DECREASED GLUCOSE; Start 01/12/19 at 10:00 Glucagon (Glucagen) 1 mg Q15M PRN IM DECREASED GLUCOSE; Start 01/12/19 at 10:00 Glucose (Glutose) 15 gm Q15M PRN BUCCAL DECREASED GLUCOSE; Start 01/12/19 at 10:00 Enoxaparin Sodium (Lovenox) 40 mg DAILY SC Last administered on 01/12/19at 10:44; Admin Dose 40 MG; Start 01/12/19 at 10:00 Methylprednisolone Sodium Succinate (Solu-Medrol) 60 mg 799,1999 IV ; Start 01/12/19 at 20:00 Assessment/Plan Hospital Course (Demo Recall) IMP: 1. Hypoxemic Resp Insufficiency--in a patient with stage IV sarcoidosis. Unclear trigger, though a tracheobronchitis likely 2. Stage IV sarcoidosis RECS: 1. Oxygen to maintain SpO2 90-92% 2. Solumedrol IV--> taper 3. BDs Q4 hours 4. Azithromycin 5. Echocardiogram for evaluation of pulmonary hypertension 6. Needs PFTs/6MWT as outpatient 7. NEEDS referral for lung transplantation upon discharge ELLIOTT MUELLER MD, [facility] Jan 12, 2019 14:15
[2019-01-12] MEDS: AZITHROMYCIN 250 MG in SOD CHLORIDE 0.9% 250 ML IVPB SCH (15:35)
--- NOTE | 2019-01-12 17:47 | RADRPT ---
Echocardiogram Report Patient Name: KYM CLOUDPatient ID: [id number] : 1970 (48y 2m)Study Date: 01/12/2019 7:42:28 AM Gender: MAccession #: [id number] Tech: Chin Prather RDCS Location: [facility] Ref.Physician: JAY MONTGOMERY Height(Cm): BSA: Weight(Kg): Quality: AdequateAccount #: Procedures: Echocardiographic Report: Transthoracic echocardiogram examination. Indications: eval PA pressure. Measurements: Doppler Measurement Value Normal Range TR Peak Gigi 3.7 [ 100.0 - 280.0 ] cm/sec TR Peak PG 56.0 mmHg RVSP 64.0 [ 10.0 - 36.0 ] mmHg RA Pressure 8.0 mmHg Findings: Left Ventricle: The left ventricular ejection fraction is visually estimated at 55-60 %. Tricuspid Valve: Normal appearance of the tricuspid valve. The estimated Peak RVSP is 64 mmHg. There is mild tricuspid regurgitation. IVC: Dilated inferior vena cava with no respiratory collapse. Conclusions: The left ventricular ejection fraction is visually estimated at 55-60 %. %. Normal appearance of the tricuspid valve. The estimated Peak RVSP is 64 mmHg. There is mild tricuspid regurgitation. Dilated inferior vena cava with no respiratory collapse. Electronically Signed By: Brian Richey 2019-01-12 17:46:20 PDT
[2019-01-13] VITALS (12 sets, daily range): BP systolic 127–195; BP diastolic 68–107; PULSE 58–84; RESP 18
[2019-01-13] MEDS: ALBUTEROL/IPRATROPIUM (NEB) 3 ML AMP HHN SCH ×6 (01:41→21:24)
[2019-01-13] MEDS: ACCU-CHEK XX SCH (02:00)
[2019-01-13] MEDS: morphine 2 MG INJ IV PRN ×3 (02:41→13:42)
[2019-01-13] MEDS ORDERED: hydrALAzine 20 MG INJ IV PRN (06:00)
[2019-01-13] MEDS: HYDROCODONE/APAP (7.5/325) TAB PO PRN (07:55)
[2019-01-13] MEDS: INSULIN ASPART [NOVOLOG] 3 ML PEN SC SCH ×4 (08:07→20:37)
[2019-01-13] MEDS: LISINOPRIL 10 MG TAB PO SCH (09:01)
[2019-01-13] MEDS: METHYLPREDNISOLONE 125 MG INJ IV SCH (09:01)
[2019-01-13] MEDS: NPH, HUMAN INSULIN ISOPHANE 3ML VIAL SC SCH ×2 (09:03→20:37)
[2019-01-13] MEDS: ENOXAPARIN 40 MG/0.4 ML SYG SC SCH (09:03)
--- NOTE | 2019-01-13 11:31 | PN ---
Date/Time of Note Date/Time of Note DATE: 01/13/19 TIME: 11:26 Assessment/Plan VTE Prophylaxis Risk score (from Nsg)>0 risk: 2 SCD applied (from Nsg): Yes Pharmacological prophylaxis: LMWH Lines/Catheters IV Catheter Type (from Nrsg): Saline Lock Assessment/Plan Hospital Course SUBJECTIVE: Lying in bed, having mild respiratory distress. OBJECTIVE: Vital signs-see below PHYSICAL EXAM: Constitutional: frail looking AA male, lying in bed comfortably. Psych: nl mood/affect, no complaints Head: atraumatic, normocephalic Eyes: nl conjunctiva, nl sclera ENMT: mucosa pink and moist, nl external ears & nose Neck: non-tender, supple Respiratory: +Rales bilaterally. Cardiovascular: nl pulses, regular rate and rhythm Gastrointestinal: non-tender, soft, bowel sounds active in all 4 quadrants. Musculoskeletal/extremities: nl extremities to inspection, motor strength equal bilaterally, no focal deficit. Normal pulses,no cyanosis, no edema. Neurological: Alert oriented 3,nl speech, nl strength Skin: nl turgor ASSESSMENT/PLAN: 48-year-old male with a history of sarcoidosis,htn,asthma,here w/ resp fx.. 1. Hypoxemic respiratory failure in light of advanced lung sarcoidosis -Continue breathing treatments, tapering dose of steroids. 2. Stage IV lung sarcoidosis. -Appreciate pulmonary recommendation, needs PFTs, /6MWT as outpatient=> referral for lung transplantation on discharge. 3. Hypertension -table. Continue lisinopril. 4. Prediabetes, A1c 6.1. -Patient with hyperglycemia, likely secondary to receiving IV steroids. cont sliding scale insulin and NPH insulin linked with steroid. -Advised on carbohydrate controlled diet. 5. Chronic anemia. -stable HH 6. Homelessness. -SW to the patient. DVT prophylaxis: Lovenox. PUD prophylaxis: Not indicated CODE STATUS: Full code Diet: Carbohydrate controlled. Disposition: Continue current management. Wean oxygen off to keep saturation above 92%. Await for improvement in respiratory status. Follow pulmonary recommendations. If respiratory status remains over the next 24 hours, likely DC planning with outpatient [facility] follow-up for stage IV lung sarcoidosis requiring possible lung transplantation. Patient was seen in collaboration with Dr. Brady. Result Diagram: 01/11/19 0503 01/13/19 0530 Results 24hrs Laboratory Tests Test 01/12/19 12:07 01/12/19 17:27 01/13/19 05:30 01/13/19 07:58 Bedside Glucose 148 123 176 Sodium Level 137 Potassium Level 4.6 Chloride Level 102 Carbon Dioxide Level 27 Anion Gap 8 Blood Urea Nitrogen 18 Creatinine 0.70 Est Glomerular > 60 Filtrat Rate mL/min Glucose Level 217 Calcium Level 9.2 Magnesium Level 1.9 Exam/Review of Systems Exam Vitals Vital Signs Date Temp Pulse Resp B/P (MAP) Pulse Ox O2 O2 Flow FiO2 Time Delivery Rate 01/13/19 94 2.0 09:39 01/13/19 77 20 Nasal 09:38 Cannula 01/13/19 97.5 127/73 07:44 (91) 01/11/19 20:22 Intake and Output 01/12/19 01/12/19 01/13/19 1515:00 23:00 07:00 IntakeIntake Total 1450 ml BalanceBalance 1450 ml Results Results 24hrs Laboratory Tests Test 01/12/19 12:07 01/12/19 17:27 01/13/19 05:30 01/13/19 07:58 Bedside Glucose 148 123 176 Sodium Level 137 Potassium Level 4.6 Chloride Level 102 Carbon Dioxide Level 27 Anion Gap 8 Blood Urea Nitrogen 18 Creatinine 0.70 Est Glomerular > 60 Filtrat Rate mL/min Glucose Level 217 Calcium Level 9.2 Magnesium Level 1.9 Medications Medication Current Medications IV Flush (NS 3 ml) 3 ml PER PROTOCOL IV ; Start 01/09/19 at 19:30 Nitroglycerin (Nitroglycerin (Sl Tab) 0.4 Mg) 1 tab Q5M PRN SL .CHEST PAIN; Start 01/09/19 at 19:30 Acetaminophen (Tylenol Tab) 650 mg Q6H PRN PO .PAIN 1-3 OR TEMP Last administered on 01/10/19at 02:31; Admin Dose 650 MG; Start 01/09/19 at 19:30 Lisinopril (Zestril) 10 mg DAILY PO Last administered on 01/13/19at 09:01; Admin Dose 10 MG; Start 01/10/19 at 09:00 Phenol (Cepastat Lozenge) 1 lozenge Q1H PRN MT SORE THROAT Last administered on 01/10/19at 14:40; Admin Dose 1 LOZENGE; Start 01/10/19 at 13:30 Guaifenesin (Robitussin Liquid Cup) 200 mg Q4H PRN PO COUGH Last administered on 01/10/19 14:40; Admin Dose 200 MG; Start 01/10/19 at 13:30 Acetaminophen/ Hydrocodone Bitart ([place] (7.5-325)) 1 tab Q4H PRN PO MODERATE PAIN LEVEL 4-6 Last administered on 01/13/19 07:55; Admin Dose 1 TAB; Start 01/10/19 at 14:00 Albuterol/ Ipratropium (Duoneb) 3 ml Q2H RESP THERAPY PRN HHN SHORTNESS OF BREATH; Start 01/10/19 at 15:30 Albuterol/ Ipratropium (Duoneb) 3 ml Q4H RESP THERAPY HHN Last administered on 01/13/19 09:35; Admin Dose 3 ML; Start 01/10/19 at 17:00 Azithromycin 250 mg/Sodium Chloride 250 ml @ 250 mls/hr Q24H IVPB Last administered on 01/12/19 15:35; Admin Dose 250 MLS/HR; Start 01/10/19 at 16:30; Stop 01/13/19 at 23:45 Diphenhydramine HCl (Benadryl) 25 mg Q6H PRN PO ITCHING Last administered on 01/10/19 22:51; Admin Dose 25 MG; Start 01/10/19 at 22:00 Morphine Sulfate (morphine) 1 mg Q4H PRN IV SEVERE PAIN LEVEL 7-10 Last administered on 01/13/19 07:00; Admin Dose 1 MG; Start 01/11/19 at 10:30 Diagnostic Test (Pha) (Accu-Chek) 1 ea 02 XX ; Start 01/13/19 at 02:00 Insulin Aspart (Novolog Insulin Pen) NOVOLOG *MILD* ALGORITHM WITH MEALS BEDTIME SC Last administered on 01/13/19 08:07; Admin Dose 1 UNIT; Start 01/12/19 at 12:00 Insulin Human NPH (Humulin N) 14 unit BID@08,20 SC Last administered on 01/13/19 09:03; Admin Dose 14 UNIT; Start 01/12/19 at 10:30 Miscellaneous Information (* Miscellaneous Pharmacy Order) NPH order has been placed ... ONCE XX ; Start 01/12/19 at 10:00 Miscellaneous Information 1 ea NOTE XX ; Start 01/12/19 at 10:00 Glucose (Glutose) 15 gm Q15M PRN PO DECREASED GLUCOSE; Start 01/12/19 at 10:00 Glucose (Glutose) 22.5 gm Q15M PRN PO DECREASED GLUCOSE; Start 01/12/19 at 10:00 Dextrose (D50w Syringe) 25 ml Q15M PRN IV DECREASED GLUCOSE; Start 01/12/19 at 10:00 Dextrose (D50w Syringe) 50 ml Q15M PRN IV DECREASED GLUCOSE; Start 01/12/19 at 10:00 Glucagon (Glucagen) 1 mg Q15M PRN IM DECREASED GLUCOSE; Start 01/12/19 at 10:00 Glucose (Glutose) 15 gm Q15M PRN BUCCAL DECREASED GLUCOSE; Start 01/12/19 at 10:00 Enoxaparin Sodium (Lovenox) 40 mg DAILY SC Last administered on 01/13/19at 09: 03; Admin Dose 40 MG; Start 01/12/19 at 10:00 Methylprednisolone Sodium Succinate (Solu-Medrol) 60 mg 799,1999 IV Last administered on 01/13/19at 09:01; Admin Dose 60 MG; Start 01/12/19 at 20:00 Hydralazine HCl (Apresoline) 10 mg Q6 PRN IV ELEVATED BLOOD PRESSURE Last administered on 01/13/19at 06:16; Admin Dose 10 MG; Start 01/13/19 at 06:00 Azithromycin (Zithromax) 250 mg DAILY PO ; Start 01/14/19 at 09:00 MIRTHA FAIRCHILD NP Jan 13, 2019 11:31
--- NOTE | 2019-01-13 15:12 | CONS ---
Consult Date/Type/Reason Admit Date/Time Jan 09, 2019 at 19:04 Initial Consult Date 01/10/19 Type of Consult Pulmonary Date/Time of Note DATE: 01/13/19 TIME: 15:11 Subjective Still with moderate respiratory distress Objective Vital Signs Date Temp Pulse Resp B/P (MAP) Pulse Ox O2 O2 Flow FiO2 Time Delivery Rate 01/13/19 99 2.0 13:50 01/13/19 78 20 Nasal 13:49 Cannula 01/13/19 97.7 146/68 11:40 (94) 01/11/19 27 20:22 Intake and Output 01/12/19 01/12/19 01/13/19 1515:00 23:00 07:00 IntakeIntake Total 1450 ml BalanceBalance 1450 ml Exam GENERAL: Thin -[place] gentleman appears comfortable at rest no acute distress VITAL SIGNS: per chart NECK: Supple. No JVD or lymphadenopathy. CARDIAC EXAM: S1, S2. No added sounds or murmurs. CHEST: clear bilaterally, No added sounds, rales or wheezes ABDOMEN: Soft, nontender. No guarding or rebound. EXTREMITIES: No cyanosis, clubbing or edema. NEUROLOGIC: Generalized weakness. No focal deficits. Vent Setting Fraction of Inspired Oxygen pe: 27 Results/Medications Result Diagram: 01/11/19 0509 01/13/19 0530 Results 24 hrs Laboratory Tests Test 01/12/19 17:27 01/13/19 05:30 01/13/19 07:58 01/13/19 11:36 Bedside Glucose 123 176 192 Sodium Level 137 Potassium Level 4.6 Chloride Level 102 Carbon Dioxide Level 27 Anion Gap 8 Blood Urea Nitrogen 18 Creatinine 0.70 Est Glomerular > 60 Filtrat Rate mL/min Glucose Level 217 Calcium Level 9.2 Magnesium Level 1.9 Medications Current Medications IV Flush (NS 3 ml) 3 ml PER PROTOCOL IV ; Start 01/09/19 at 19:30 Nitroglycerin (Nitroglycerin (Sl Tab) 0.4 Mg) 1 tab Q5M PRN SL .CHEST PAIN; Start 01/09/19 at 19:30 Acetaminophen (Tylenol Tab) 650 mg Q6H PRN PO .PAIN 1-3 OR TEMP Last administered on 01/10/19at 02:31; Admin Dose 650 MG; Start 01/09/19 at 19:30 Lisinopril (Zestril) 10 mg DAILY PO Last administered on 01/13/19 09:01; Admin Dose 10 MG; Start 01/10/19 at 09:00 Phenol (Cepastat Lozenge) 1 lozenge Q1H PRN MT SORE THROAT Last administered on 01/10/19 14:40; Admin Dose 1 LOZENGE; Start 01/10/19 at 13:30 Guaifenesin (Robitussin Liquid Cup) 200 mg Q4H PRN PO COUGH Last administered on 01/10/19 14:40; Admin Dose 200 MG; Start 01/10/19 at 13:30 Acetaminophen/ Hydrocodone Bitart ([place] (7.5-325)) 1 tab Q4H PRN PO MODERATE PAIN LEVEL 4-6 Last administered on 01/13/19 07:55; Admin Dose 1 TAB; Start 01/10/19 at 14:00 Albuterol/ Ipratropium (Duoneb) 3 ml Q2H RESP THERAPY PRN HHN SHORTNESS OF BREATH; Start 01/10/19 at 15:30 Albuterol/ Ipratropium (Duoneb) 3 ml Q4H RESP THERAPY HHN Last administered on 01/13/19 13:46; Admin Dose 3 ML; Start 01/10/19 at 17:00 Azithromycin 250 mg/Sodium Chloride 250 ml @ 250 mls/hr Q24H IVPB Last administered on 01/12/19 15:35; Admin Dose 250 MLS/HR; Start 01/10/19 at 16:30; Stop 01/13/19 at 23:45 Diphenhydramine HCl (Benadryl) 25 mg Q6H PRN PO ITCHING Last administered on 01/10/19 22:51; Admin Dose 25 MG; Start 01/10/19 at 22:00 Morphine Sulfate (morphine) 1 mg Q4H PRN IV SEVERE PAIN LEVEL 7-10 Last administered on 01/13/19 13:42; Admin Dose 1 MG; Start 01/11/19 at 10:30 Diagnostic Test (Pha) (Accu-Chek) 1 ea 02 XX ; Start 01/13/19 at 02:00 Insulin Aspart (Novolog Insulin Pen) NOVOLOG *MILD* ALGORITHM WITH MEALS BEDTIME SC Last administered on 01/13/19 11:53; Admin Dose 2 UNIT; Start 01/12/19 at 12:00 Insulin Human NPH (Humulin N) 14 unit BID@08,20 SC Last administered on 01/13/19at 09:03; Admin Dose 14 UNIT; Start 01/12/19 at 10:30 Miscellaneous Information (* Miscellaneous Pharmacy Order) NPH order has been placed ... ONCE XX ; Start 01/12/19 at 10:00 Miscellaneous Information 1 ea NOTE XX ; Start 01/12/19 at 10:00 Glucose (Glutose) 15 gm Q15M PRN PO DECREASED GLUCOSE; Start 01/12/19 at 10:00 Glucose (Glutose) 22.5 gm Q15M PRN PO DECREASED GLUCOSE; Start 01/12/19 at 10:00 Dextrose (D50w Syringe) 25 ml Q15M PRN IV DECREASED GLUCOSE; Start 01/12/19 at 10:00 Dextrose (D50w Syringe) 50 ml Q15M PRN IV DECREASED GLUCOSE; Start 01/12/19 at 10:00 Glucagon (Glucagen) 1 mg Q15M PRN IM DECREASED GLUCOSE; Start 01/12/19 at 10:00 Glucose (Glutose) 15 gm Q15M PRN BUCCAL DECREASED GLUCOSE; Start 01/12/19 at 10:00 Enoxaparin Sodium (Lovenox) 40 mg DAILY SC Last administered on 01/13/19at 09:03; Admin Dose 40 MG; Start 01/12/19 at 10:00 Hydralazine HCl (Apresoline) 10 mg Q6 PRN IV ELEVATED BLOOD PRESSURE Last administered on 01/13/19at 06:16; Admin Dose 10 MG; Start 01/13/19 at 06:00 Azithromycin (Zithromax) 250 mg DAILY PO ; Start 01/14/19 at 09:00 Methylprednisolone Sodium Succinate (Solu-Medrol) 40 mg 799,1999 IV ; Start 01/13/19 at 20:00 Assessment/Plan Hospital Course (Demo Recall) IMP: 1. Hypoxemic Resp Insufficiency--in a patient with stage IV sarcoidosis. Unclear trigger, though a tracheobronchitis likely 2. Stage IV sarcoidosis RECS: 1. Oxygen to maintain SpO2 90-92% 2. Solumedrol IV--> taper 3. BDs Q4 hours 4. Azithromycin 5. Echocardiogram for evaluation of pulmonary hypertension 6. Needs PFTs/6MWT as outpatient 7. NEEDS referral for lung transplantation upon discharge Transfer to tertiary center discussed this morning. Patient will likely need outpatient appointment prior to discharge home. Unfortunately per case management patient is currently homeless. ELLIOTT MUELLER MD, [facility] Jan 13, 2019 15:12
[2019-01-13] MEDS: AZITHROMYCIN 250 MG in SOD CHLORIDE 0.9% 250 ML IVPB SCH (15:30)
[2019-01-13] MEDS: METHYLPREDNISOLONE 40 MG INJ IV SCH (20:29)
[2019-01-14] VITALS (16 sets, daily range): BP systolic 150–187; BP diastolic 79–105; PULSE 57–91; RESP 18–20
[2019-01-14] MEDS: ALBUTEROL/IPRATROPIUM (NEB) 3 ML AMP HHN SCH ×6 (00:18→20:10)
[2019-01-14] MEDS: ACCU-CHEK XX SCH (01:52)
[2019-01-14] MEDS: morphine 2 MG INJ IV PRN ×4 (01:52→22:11)
[2019-01-14] MEDS: INSULIN ASPART [NOVOLOG] 3 ML PEN SC SCH ×4 (07:35→20:02)
[2019-01-14] MEDS: AZITHROMYCIN 250 MG TAB PO SCH (08:37)
[2019-01-14] MEDS: LISINOPRIL 10 MG TAB PO SCH (08:37)
[2019-01-14] MEDS: ENOXAPARIN 40 MG/0.4 ML SYG SC SCH (08:59)
[2019-01-14] MEDS: NPH, HUMAN INSULIN ISOPHANE 3ML VIAL SC SCH ×2 (08:59→20:09)
[2019-01-14] MEDS: METHYLPREDNISOLONE 40 MG INJ IV SCH ×2 (09:29→20:03)
--- NOTE | 2019-01-14 09:55 | PN ---
Date/Time of Note Date/Time of Note DATE: 01/14/19 TIME: 09:52 Assessment/Plan VTE Prophylaxis Risk score (from Nsg)>0 risk: 1 SCD applied (from Nsg): Yes Pharmacological prophylaxis: LMWH Lines/Catheters IV Catheter Type (from Nrsg): Peripheral IV Assessment/Plan Hospital Course SUBJECTIVE: Patient was able to ambulate. He is off oxygen now. No further respiratory distress. OBJECTIVE: Vital signs-see below PHYSICAL EXAM: Constitutional: frail looking AA male, lying in bed comfortably. Psych: nl mood/affect, no complaints Head: atraumatic, normocephalic Eyes: nl conjunctiva, nl sclera ENMT: mucosa pink and moist, nl external ears & nose Neck: non-tender, supple Respiratory: +Rales bilaterally. Cardiovascular: nl pulses, regular rate and rhythm Gastrointestinal: non-tender, soft, bowel sounds active in all 4 quadrants. Musculoskeletal/extremities: nl extremities to inspection, motor strength equal bilaterally, no focal deficit. Normal pulses,no cyanosis, no edema. Neurological: Alert oriented 3,nl speech, nl strength Skin: nl turgor ASSESSMENT/PLAN: 48-year-old male with a history of sarcoidosis,htn,asthma,here w/ resp fx.. 1. Hypoxemic respiratory failure in light of advanced lung sarcoidosis -Clinically stable now. -Continue breathing treatments, tapering dose of steroids. 2. Stage IV lung sarcoidosis. -Appreciate pulmonary recommendation, needs PFTs, /6MWT as outpatient=> referral for lung transplantation on discharge. 3. Hypertension -table. Continue lisinopril, adjust dose for BP control. 4. Prediabetes, A1c 6.1. -Patient with hyperglycemia, likely secondary to receiving IV steroids. cont sliding scale insulin and NPH insulin linked with steroid. -Advised on carbohydrate controlled diet. 5. Chronic anemia. -stable HH 6. Homelessness. -SW to the patient. DVT prophylaxis: Lovenox. PUD prophylaxis: Not indicated CODE STATUS: Full code Diet: Carbohydrate controlled. Disposition: Overall stable respiratory status at present. DC planning with outpatient appropriate [facility] follow-up for stage IV lung sarcoidosis requiring possible lung transplantation. However, patient needs to have his interim housing arranged prior to discharge so that he can get a regular follow-up for lung transplantation at [facility]. According to director of social services, his housing arrangements can be confirmed in the next 24 hours and we will discharge patient once this is confirmed in the next 24 hours. Patient was seen in collaboration with Dr. Garcia Result Diagram: 01/14/19 0532 01/14/19 0532 Results 24hrs Laboratory Tests Test 01/13/19 11:36 01/13/19 17:08 01/13/19 20:28 01/14/19 05:32 Bedside Glucose 192 188 117 White Blood Count 9.9 Red Blood Count 3.97 L Hemoglobin 12.0 L Hematocrit 37.6 L Mean Corpuscular 94.7 Volume Mean Corpuscular 30.2 Hemoglobin Mean Corpuscular 31.9 L Hemoglobin Concent Red Cell 13.5 Distribution Width Platelet Count 477 H Mean Platelet Volume 8.5 Immature 1.000 H Granulocytes % Neutrophils % 89.3 H Lymphocytes % 4.2 L Monocytes % 5.4 Eosinophils % 0.0 Basophils % 0.1 Nucleated Red Blood 0.0 Cells % Immature 0.100 H Granulocytes # Neutrophils # 8.8 H Lymphocytes # 0.4 L Monocytes # 0.5 Eosinophils # 0.0 Basophils # 0.0 Nucleated Red Blood 0.0 Cells # Sodium Level 139 Potassium Level 3.8 Chloride Level 99 Carbon Dioxide Level 30 Anion Gap 10 Blood Urea Nitrogen 17 Creatinine 0.72 Est Glomerular > 60 Filtrat Rate mL/min Glucose Level 169 Calcium Level 9.1 Test 01/14/19 07:35 Bedside Glucose 114 Exam/Review of Systems Exam Vitals Vital Signs Date Temp Pulse Resp B/P (MAP) Pulse Ox O2 O2 Flow FiO2 Time Delivery Rate 01/14/19 98.2 68 20 150/88 96 Room Air 09:08 (108) 01/14/19 21 05:04 01/13/19 2.0 21:24 Intake and Output 01/13/19 01/13/19 01/14/19 1515:00 23:00 07:00 IntakeIntake Total 1100 ml 1350 ml 1200 ml BalanceBalance 1100 ml 1350 ml 1200 ml Results Results 24hrs Laboratory Tests Test 01/13/19 11:36 01/13/19 17:08 01/13/19 20:28 01/14/19 05:32 Bedside Glucose 192 188 117 White Blood Count 9.9 Red Blood Count 3.97 L Hemoglobin 12.0 L Hematocrit 37.6 L Mean Corpuscular 94.7 Volume Mean Corpuscular 30.2 Hemoglobin Mean Corpuscular 31.9 L Hemoglobin Concent Red Cell 13.5 Distribution Width Platelet Count 477 H Mean Platelet Volume 8.5 Immature 1.000 H Granulocytes % Neutrophils % 89.3 H Lymphocytes % 4.2 L Monocytes % 5.4 Eosinophils % 0.0 Basophils % 0.1 Nucleated Red Blood 0.0 Cells % Immature 0.100 H Granulocytes # Neutrophils # 8.8 H Lymphocytes # 0.4 L Monocytes # 0.5 Eosinophils # 0.0 Basophils # 0.0 Nucleated Red Blood 0.0 Cells # Sodium Level 139 Potassium Level 3.8 Chloride Level 99 Carbon Dioxide Level 30 Anion Gap 10 Blood Urea Nitrogen 17 Creatinine 0.72 Est Glomerular > 60 Filtrat Rate mL/min Glucose Level 169 Calcium Level 9.1 Test 01/14/19 07:35 Bedside Glucose 114 Medications Medication Current Medications IV Flush (NS 3 ml) 3 ml PER PROTOCOL IV ; Start 01/09/19 at 19:30 Nitroglycerin (Nitroglycerin (Sl Tab) 0.4 Mg) 1 tab Q5M PRN SL .CHEST PAIN; Start 01/09/19 at 19:30 Acetaminophen (Tylenol Tab) 650 mg Q6H PRN PO .PAIN 1-3 OR TEMP Last administered on 01/10/19at 02:31; Admin Dose 650 MG; Start 01/09/19 at 19:30 Lisinopril (Zestril) 10 mg DAILY PO Last administered on 01/14/19at 08:37; Admin Dose 10 MG; Start 01/10/19 at 09:00 Phenol (Cepastat Lozenge) 1 lozenge Q1H PRN MT SORE THROAT Last administered on 01/10/19at 14:40; Admin Dose 1 LOZENGE; Start 01/10/19 at 13:30 Guaifenesin (Robitussin Liquid Cup) 200 mg Q4H PRN PO COUGH Last administered on 01/10/19at 14:40; Admin Dose 200 MG; Start 01/10/19 at 13:30 Acetaminophen/ Hydrocodone Bitart ([place] (7.5-325)) 1 tab Q4H PRN PO MODERATE PAIN LEVEL 4-6 Last administered on 01/13/19at 07:55; Admin Dose 1 TAB; Start 01/10/19 at 14:00 Albuterol/ Ipratropium (Duoneb) 3 ml Q2H RESP THERAPY PRN HHN SHORTNESS OF BREATH; Start 01/10/19 at 15:30 Albuterol/ Ipratropium (Duoneb) 3 ml Q4H RESP THERAPY HHN Last administered on 01/14/19at 09:27; Admin Dose 3 ML; Start 01/10/19 at 17:00 Diphenhydramine HCl (Benadryl) 25 mg Q6H PRN PO ITCHING Last administered on 01/10/19at 22:51; Admin Dose 25 MG; Start 01/10/19 at 22:00 Morphine Sulfate (morphine) 1 mg Q4H PRN IV SEVERE PAIN LEVEL 7-10 Last administered on 01/14/19at 09:30; Admin Dose 1 MG; Start 01/11/19 at 10:30 Diagnostic Test (Pha) (Accu-Chek) 1 ea 02 XX ; Start 01/13/19 at 02:00 Insulin Aspart (Novolog Insulin Pen) NOVOLOG *MILD* ALGORITHM WITH MEALS BEDTIME SC Last administered on 01/13/19at 17:18; Admin Dose 2 UNIT; Start 01/12/19 at 12:00 Insulin Human NPH (Humulin N) 14 unit BID@08,20 SC Last administered on 01/14/19at 08:59; Admin Dose 14 UNIT; Start 01/12/19 at 10:30 Miscellaneous Information (* Miscellaneous Pharmacy Order) NPH order has been placed ... ONCE XX ; Start 01/12/19 at 10:00 Miscellaneous Information 1 ea NOTE XX ; Start 01/12/19 at 10:00 Glucose (Glutose) 15 gm Q15M PRN PO DECREASED GLUCOSE; Start 01/12/19 at 10:00 Glucose (Glutose) 22.5 gm Q15M PRN PO DECREASED GLUCOSE; Start 01/12/19 at 10:00 Dextrose (D50w Syringe) 25 ml Q15M PRN IV DECREASED GLUCOSE; Start 01/12/19 at 10:00 Dextrose (D50w Syringe) 50 ml Q15M PRN IV DECREASED GLUCOSE; Start 01/12/19 at 10:00 Glucagon (Glucagen) 1 mg Q15M PRN IM DECREASED GLUCOSE; Start 01/12/19 at 10:00 Glucose (Glutose) 15 gm Q15M PRN BUCCAL DECREASED GLUCOSE; Start 01/12/19 at 10:00 Enoxaparin Sodium (Lovenox) 40 mg DAILY SC Last administered on 01/14/19at 08 :59; Admin Dose 40 MG; Start 01/12/19 at 10:00 Hydralazine HCl (Apresoline) 10 mg Q6 PRN IV ELEVATED BLOOD PRESSURE Last administered on 01/13/19at 06:16; Admin Dose 10 MG; Start 01/13/19 at 06:00 Azithromycin (Zithromax) 250 mg DAILY PO Last administered on 01/14/19at 08:37; Admin Dose 250 MG; Start 01/14/19 at 09:00 Methylprednisolone Sodium Succinate (Solu-Medrol) 40 mg 799,1999 IV Last admin istered on 01/14/19at 09:29; Admin Dose 40 MG; Start 01/13/19 at 20:00 MIRTHA FAIRCHILD NP Jan 14, 2019 09:55
--- NOTE | 2019-01-14 09:57 | PDOCDIS ---
Discharge Instructions CONDITION [id number] Patient Condition: [id number] Stable HOME CARE INSTRUCTIONS: [id number] Diet Instructions: [id number] Regular FOLLOW UP/APPOINTMENTS Follow-up Plan Follow-up with [facility] for lung transplantation follow-up. Follow-up With in his clinic in 1 week. [address] [address] Office MIRTHA FAIRCHILD NP Jan 14, 2019 09:57
--- NOTE | 2019-01-14 11:43 | CONS ---
Consult Date/Type/Reason Admit Date/Time Jan 09, 2019 at 19:04 Initial Consult Date 01/10/19 Type of Consult Pulmonary Date/Time of Note DATE: 01/14/19 TIME: 11:42 Subjective Patient better this morning less respiratory distress. Objective Vital Signs Date Temp Pulse Resp B/P (MAP) Pulse Ox O2 O2 Flow FiO2 Time Delivery Rate 01/14/19 97.8 68 18 187/104 95 Room Air 11:22 (131) 01/14/19 21 05:04 01/13/19 2.0 21:24 Intake and Output 01/13/19 01/13/19 01/14/19 1515:00 23:00 07:00 IntakeIntake Total 1100 ml 1350 ml 1200 ml BalanceBalance 1100 ml 1350 ml 1200 ml Exam GENERAL: Thin -Citizen Of [place] gentleman appears comfortable at rest no acute distress VITAL SIGNS: per chart NECK: Supple. No JVD or lymphadenopathy. CARDIAC EXAM: S1, S2. No added sounds or murmurs. CHEST: clear bilaterally, No added sounds, rales or wheezes ABDOMEN: Soft, nontender. No guarding or rebound. EXTREMITIES: No cyanosis, clubbing or edema. NEUROLOGIC: Generalized weakness. No focal deficits. Vent Setting Fraction of Inspired Oxygen pe: 21 Results/Medications Result Diagram: 01/14/19 0532 01/14/19 0532 Results 24 hrs Laboratory Tests Test 01/13/19 17:08 01/13/19 20:28 01/14/19 05:32 01/14/19 07:35 Bedside Glucose 188 117 114 White Blood Count 9.9 Red Blood Count 3.97 L Hemoglobin 12.0 L Hematocrit 37.6 L Mean Corpuscular 94.7 Volume Mean Corpuscular 30.2 Hemoglobin Mean Corpuscular 31.9 L Hemoglobin Concent Red Cell 13.5 Distribution Width Platelet Count 477 H Mean Platelet Volume 8.5 Immature 1.000 H Granulocytes % Neutrophils % 89.3 H Lymphocytes % 4.2 L Monocytes % 5.4 Eosinophils % 0.0 Basophils % 0.1 Nucleated Red Blood 0.0 Cells % Immature 0.100 H Granulocytes # Neutrophils # 8.8 H Lymphocytes # 0.4 L Monocytes # 0.5 Eosinophils # 0.0 Basophils # 0.0 Nucleated Red Blood 0.0 Cells # Sodium Level 139 Potassium Level 3.8 Chloride Level 99 Carbon Dioxide Level 30 Anion Gap 10 Blood Urea Nitrogen 17 Creatinine 0.72 Est Glomerular > 60 Filtrat Rate mL/min Glucose Level 169 Calcium Level 9.1 Medications Current Medications IV Flush (NS 3 ml) 3 ml PER PROTOCOL IV ; Start 01/09/19 at 19:30 Nitroglycerin (Nitroglycerin (Sl Tab) 0.4 Mg) 1 tab Q5M PRN SL .CHEST PAIN; Start 01/09/19 at 19:30 Acetaminophen (Tylenol Tab) 650 mg Q6H PRN PO .PAIN 1-3 OR TEMP Last administered on 01/10/19 02:31; Admin Dose 650 MG; Start 01/09/19 at 19:30 Lisinopril (Zestril) 10 mg DAILY PO Last administered on 01/14/19 08:37; Admin Dose 10 MG; Start 01/10/19 at 09:00 Phenol (Cepastat Lozenge) 1 lozenge Q1H PRN MT SORE THROAT Last administered on 01/10/19 14:40; Admin Dose 1 LOZENGE; Start 01/10/19 at 13:30 Guaifenesin (Robitussin Liquid Cup) 200 mg Q4H PRN PO COUGH Last administered on 01/10/19 14:40; Admin Dose 200 MG; Start 01/10/19 at 13:30 Acetaminophen/ Hydrocodone Bitart ([place] (7.5-325)) 1 tab Q4H PRN PO MODERATE PAIN LEVEL 4-6 Last administered on 01/13/19 07:55; Admin Dose 1 TAB; Start 01/10/19 at 14:00 Albuterol/ Ipratropium (Duoneb) 3 ml Q2H RESP THERAPY PRN HHN SHORTNESS OF BREATH; Start 01/10/19 at 15:30 Albuterol/ Ipratropium (Duoneb) 3 ml Q4H RESP THERAPY HHN Last administered on 01/14/19 09:27; Admin Dose 3 ML; Start 01/10/19 at 17:00 Diphenhydramine HCl (Benadryl) 25 mg Q6H PRN PO ITCHING Last administered on 01/10/19 22:51; Admin Dose 25 MG; Start 01/10/19 at 22:00 Morphine Sulfate (morphine) 1 mg Q4H PRN IV SEVERE PAIN LEVEL 7-10 Last ad ministered on 01/14/19at 09:30; Admin Dose 1 MG; Start 01/11/19 at 10:30 Diagnostic Test (Pha) (Accu-Chek) 1 ea 02 XX ; Start 01/13/19 at 02:00 Insulin Aspart (Novolog Insulin Pen) NOVOLOG *MILD* ALGORITHM WITH MEALS BEDTIME SC Last administered on 01/13/19at 17:18; Admin Dose 2 UNIT; Start 01/12/19 at 12:00 Insulin Human NPH (Humulin N) 14 unit BID@08,20 SC Last administered on 01/14/19at 08:59; Admin Dose 14 UNIT; Start 01/12/19 at 10:30 Miscellaneous Information (* Miscellaneous Pharmacy Order) NPH order has been placed ... ONCE XX ; Start 01/12/19 at 10:00 Miscellaneous Information 1 ea NOTE XX ; Start 01/12/19 at 10:00 Glucose (Glutose) 15 gm Q15M PRN PO DECREASED GLUCOSE; Start 01/12/19 at 10:00 Glucose (Glutose) 22.5 gm Q15M PRN PO DECREASED GLUCOSE; Start 01/12/19 at 10:00 Dextrose (D50w Syringe) 25 ml Q15M PRN IV DECREASED GLUCOSE; Start 01/12/19 at 10:00 Dextrose (D50w Syringe) 50 ml Q15M PRN IV DECREASED GLUCOSE; Start 01/12/19 at 10:00 Glucagon (Glucagen) 1 mg Q15M PRN IM DECREASED GLUCOSE; Start 01/12/19 at 10:00 Glucose (Glutose) 15 gm Q15M PRN BUCCAL DECREASED GLUCOSE; Start 01/12/19 at 10:00 Enoxaparin Sodium (Lovenox) 40 mg DAILY SC Last administered on 01/14/19at 08:59; Admin Dose 40 MG; Start 01/12/19 at 10:00 Hydralazine HCl (Apresoline) 10 mg Q6 PRN IV ELEVATED BLOOD PRESSURE Last administered on 01/13/19at 06:16; Admin Dose 10 MG; Start 01/13/19 at 06:00 Azithromycin (Zithromax) 250 mg DAILY PO Last administered on 01/14/19at 08:37; Admin Dose 250 MG; Start 01/14/19 at 09:00 Methylprednisolone Sodium Succinate (Solu-Medrol) 40 mg IV Last administered on 01/14/19at 09:29; Admin Dose 40 MG; Start 01/13/19 at 20:00 Assessment/Plan Hospital Course (Demo Recall) IMP: 1. Hypoxemic Resp Insufficiency--in a patient with stage IV sarcoidosis. Unclear trigger, though a tracheobronchitis likely 2. Stage IV sarcoidosis RECS: 1. Oxygen to maintain SpO2 90-92% 2. P.o. steroid taper. 3. BDs Q4 hours 4. Azithromycin 5. Echocardiogram for evaluation of pulmonary hypertension 6. Needs PFTs/6MWT as outpatient DC planning today. Will need outpatient follow-up at tertiary care center for possible lung transplant eval. ELLIOTT MUELLER MD, [facility] Jan 14, 2019 11:43
[2019-01-14] MEDS ORDERED: LISINOPRIL 10 MG TAB PO ONE (12:00)
[2019-01-14] MEDS: AMLODIPINE 2.5 MG TAB PO SCH (12:32)
--- NOTE | 2019-01-14 14:17 | DS ---
Date/Time of Note Date/Time of Note DATE: 01/14/19 TIME: 14:16 Discharge Summary Admission/Discharge Info Admit Date/Time Jan 09, 2019 at 19:04 Discharge Date/Time Discharge Diagnosis 1. Hypoxemic respiratory failure in light of advanced lung sarcoidosis.stable 2. Stage IV lung sarcoidosis. 3. Hypertension 4. Prediabetes, A1c 6.1. 5. Chronic anemia. 6. Homelessness. Patient Condition: Stable Consults , pulmonary Procedures 01/09/2019. Chest x-ray IMPRESSION: Chronic fibrotic changes predominate within the upper lobes are stable compared to 12/26/2018 without evidence for acute superimposed pneumonia. Hospital Course 48-year-old male with a history of sarcoidosis,htn,asthma, admitted with resp fx.. Patient was managed with breathing treatments, tapering dose of steroids. He was being followed by pulmonary medicine. Respiratory status remained stable and he was able to saturate normal on room air. He was also noted with prediabetes A1c 6.1 for which he was recommended on carb controlled diet. Patient was also noted with blood pressure requiring addition of another agent. Lisinopril was increased to 20 mg with addition of Norvasc 2.5 mg with control of blood pressure. According to pulmonary standpoint, in light of stage IV lung sarcoidosis, patient would need a lung transplantation for which he needs to have outpatient referral for tertiary care centers. e business project manager was able to provide him with resources to get to [facility] transplant team. However, homelessness is a big barrier for this patient to have appropriate follow-up. For which, our social worker school was able to get him to some interim housing program where he can stay and have follow-up for lung transplant. Patient was also given our photo intern information for outpatient follow-up. At this time, he is feeling back to his baseline. Labs and vital signs stable. Patient is medically stable for discharge with outpatient history of a lung transplant team. Patient verbalized understanding. Approximately 60 m spent on coordinating the discharge on this patient. Patient was seen in collaboration with Dr. Garcia. Home Meds Active Scripts Amlodipine Besylate* (Amlodipine Besylate*) 2.5 Mg Tablet, 2.5 MG PO DAILY, #30 TAB Prov:MIRTHA FAIRCHILD V. CABBAGE SALTER 01/14/19 Lisinopril* (Lisinopril*) 20 Mg Tablet, 20 MG PO DAILY, #30 TAB Prov:MIRTHA FAIRCHILD V. CABBAGE SALTER 01/14/19 Albuterol Sulfate* (Ventolin HFA*) 18 Gm Hfa.aer.ad, 2 PUFF INHALATION Q4H, #1 INHALER Prov:MIRTHA FAIRCHILD V. CABBAGE SALTER 01/14/19 Prednisone* (Prednisone*) 20 Mg Tab, 20 MG PO DAILY, #30 TAB Take two 20mg pills on 01/15/2019, 01/16/2019 and thereafter 1 pill daily. Prov:MIRTHA FAIRCHILD V. CABBAGE SALTER 01/14/19 Discontinued Reported Medications Lisinopril* (Lisinopril*) 10 Mg Tablet, 10 MG PO DAILY, #30 TAB 10/13/18 Follow-up Plan Follow-up with [facility] for lung transplantation follow-up. Follow-up With in his clinic in 1 week. [address] [facility] [address] [place] [address] Office Primary Care Provider Not On Staff Doctor Pending Labs Laboratory Tests Test 01/13/19 17:08 01/13/19 20:28 01/14/19 05:32 01/14/19 07:35 Bedside 188 117 114 Glucose mg/dL (70-220) mg/dL (70-220) mg/dL (70-220) White Blood 9.9 Count 10^3/ul (4.8-1 0.8) Red Blood 3.97 Count 10^6/ul (4.70- 6.10) Hemoglobin 12.0 g/dl (14.0-18. 0) Hematocrit 37.6 % (42.0-52.0) Mean 94.7 Corpuscular fl (82.0-101.0 Volume ) Mean 30.2 Corpuscular pg (29.0-33.0) Hemoglobin Mean 31.9 Corpuscular g/dl (32.0-37. Hemoglobin Conc 0) ent Red Cell 13.5 Distribution % (11.5-14.5) Width Platelet Count 477 10^3/UL (140-4 15) Mean Platelet 8.5 Volume fl (7.4-10.4) Immature 1.000 Granulocytes % % (0.001-0.429 ) Neutrophils % 89.3 % (39.0-77.0) Lymphocytes % 4.2 % (15.0-51.0) Monocytes % 5.4 % (0.0-11.0) Eosinophils % 0.0 % (0.0-7.0) Basophils % 0.1 % (0.0-2.0) Nucleated Red 0.0 Blood Cells % /100WBC (0.0-0 .0) Immature 0.100 Granulocytes # 10^3/ul (0.0-0 .031) Neutrophils # 8.8 10^3/ul (1.6-7 .5) Lymphocytes # 0.4 10^3/ul (0.8-2 .9) Monocytes # 0.5 10^3/ul (0.3-0 .9) Eosinophils # 0.0 10^3/ul (0.0-0 .5) Basophils # 0.0 10^3/ul (0.0-0 .1) Nucleated Red 0.0 Blood Cells # 10^3/ul (0.0-0 .0) Sodium Level 139 mmol/L (135-14 4) Potassium 3.8 Level mmol/L (3.5-5. 1) Chloride Level 99 mmol/L (97-110 ) Carbon Dioxide 30 Level mmol/L (21-31) Anion Gap 10 (5-13) Blood Urea 17 Nitrogen mg/dl (7-20) Creatinine 0.72 mg/dl (0.61-1. 24) Est Glomerular > 60 Filtrat mL/min (>60) Rate mL/min Glucose Level 169 mg/dl (70-220) Calcium Level 9.1 mg/dl (8.4-10. 2) Test 01/14/19 11:48 Bedside 136 Glucose mg/dL (70-220) MIRTHA FAIRCHILD NP Jan 14, 2019 14:17
[2019-01-14] MEDS ORDERED: ALBU18HF INHALATION (14:22)
[2019-01-14] MEDS ORDERED: PRED20TA PO (14:22)
[2019-01-14] MEDS ORDERED: LISI10TA2 PO (14:22)
[2019-01-14] MEDS ORDERED: LISI-471 PO (14:28)
[2019-01-14] MEDS ORDERED: AMLO2.5T78 PO (14:28)
[2019-01-15] VITALS (7 sets, daily range): BP systolic 134–154; BP diastolic 74–99; PULSE 57–82; RESP 18–19
[2019-01-15] MEDS: ALBUTEROL/IPRATROPIUM (NEB) 3 ML AMP HHN SCH ×3 (00:46→10:05)
[2019-01-15] MEDS: ACCU-CHEK XX SCH (02:00)
[2019-01-15] MEDS: morphine 2 MG INJ IV PRN (07:03)
[2019-01-15] MEDS: INSULIN ASPART [NOVOLOG] 3 ML PEN SC SCH ×2 (08:00→12:32)
[2019-01-15] MEDS: METHYLPREDNISOLONE 40 MG INJ IV SCH (08:31)
[2019-01-15] MEDS: AZITHROMYCIN 250 MG TAB PO SCH (08:32)
[2019-01-15] MEDS: AMLODIPINE 2.5 MG TAB PO SCH (08:32)
[2019-01-15] MEDS: ENOXAPARIN 40 MG/0.4 ML SYG SC SCH (08:41)
[2019-01-15] MEDS: NPH, HUMAN INSULIN ISOPHANE 3ML VIAL SC SCH (08:41)
[2019-01-15] MEDS ORDERED: LISINOPRIL 20 MG TAB PO SCH (09:00)
--- NOTE | 2019-01-15 10:35 | QN ---
Documentation Comment Discharge was canceled yesterday secondary to issues with refilling his me dications and interim housing confirmation. Patient appears stable, off oxygen and medically stable for discharge today once this housing issue is resolved. Case discussed with MIRTHA Duran NP Jan 15, 2019 10:35
--- NOTE | 2019-01-15 10:36 | DS ---
Date/Time of Note Date/Time of Note DATE: 01/15/19 TIME: 10:35 Discharge Summary Admission/Discharge Info Admit Date/Time Jan 09, 2019 at 19:04 Discharge Date/Time Discharge Diagnosis 1. Hypoxemic respiratory failure in light of advanced lung sarcoidosis.stable 2. Stage IV lung sarcoidosis. 3. Hypertension 4. Prediabetes, A1c 6.1. 5. Chronic anemia. 6. Homelessness. Patient Condition: Stable Consults , pulmonary Procedures 01/09/2019. Chest x-ray IMPRESSION: Chronic fibrotic changes predominate within the upper lobes are stable compared to 12/26/2018 without evidence for acute superimposed pneumonia. Hospital Course 48-year-old male with a history of sarcoidosis,htn,asthma, admitted with resp fx.. Patient was managed with breathing treatments, tapering dose of steroids. He was being followed by pulmonary medicine. Respiratory status remained stable and he was able to saturate normal on room air. He was also noted with prediabetes A1c 6.1 for which he was recommended on carb controlled diet. Patient was also noted with blood pressure requiring addition of another agent. Lisinopril was increased to 20 mg with addition of Norvasc 2.5 mg with control of blood pressure. According to pulmonary standpoint, in light of stage IV lung sarcoidosis, patient would need a lung transplantation for which he needs to have outpatient referral for tertiary care centers. bus transportation manager was able to provide him with resources to get to [facility] transplant team. However, homelessness is a big barrier for this patient to have appropriate follow-up. For which, our psych social worker was able to get him to some interim housing program where he can stay and have follow-up for lung transplant. Patient was also given our care program resident information for outpatient follow-up. At this time, he is feeling back to his baseline. Labs and vital signs stable. Patient is medically stable for discharge with outpatient history of a lung boone splant team. Patient verbalized understanding. Approximately 60 m spent on coordinating the discharge on this patient. Patient was seen in collaboration with Dr. Garcia. Home Meds Active Scripts Amlodipine Besylate* (Amlodipine Besylate*) 2.5 Mg Tablet, 2.5 MG PO DAILY, #30 TAB Prov:MIRTHA FAIRCHILD V. CYLINDER INSPECTOR 01/14/19 Lisinopril* (Lisinopril*) 20 Mg Tablet, 20 MG PO DAILY, #30 TAB Prov:MIRTHA FAIRCHILD NP 01/14/19 Albuterol Sulfate* (Ventolin HFA*) 18 Gm Hfa.aer.ad, 2 PUFF INHALATION Q4H, #1 INHALER Prov:MIRTHA FAIRCHILD NP 01/14/19 Prednisone* (Prednisone*) 20 Mg Tab, 20 MG PO DAILY, #30 TAB Take two 20mg pills on 01/15/2019, 01/16/2019 and thereafter 1 pill daily. Prov:MIRTHA FAIRCHILD NP 01/14/19 Discontinued Reported Medications Lisinopril* (Lisinopril*) 10 Mg Tablet, 10 MG PO DAILY, #30 TAB 10/13/18 Follow-up Plan Follow-up with [facility] for lung transplantation follow-up. Follow-up With in his clinic in 1 week. [address] [facility] [address] [place] [id number] Office Primary Care Provider Not On Staff Doctor Pending Labs Laboratory Tests Test 01/14/19 11:48 01/14/19 17:11 01/14/19 20:02 01/15/19 08:29 Bedside 136 84 112 138 Glucose mg/dL (70-220) mg/dL (70-220) mg/dL (70-220) mg/dL (70-220) MIRTHA FAIRCHILD NP Jan 15, 2019 10:36
--- NOTE | 2019-01-15 12:22 | CONS ---
Consult Date/Type/Reason Admit Date/Time Jan 09, 2019 at 19:04 Initial Consult Date 01/10/19 Type of Consult Pulmonary Date/Time of Note DATE: 01/15/19 TIME: 12:21 Subjective Patient doing okay this morning. Objective Vital Signs Date Temp Pulse Resp B/P (MAP) Pulse Ox O2 O2 Flow FiO2 Time Delivery Rate 01/15/19 98.8 71 18 154/95 96 Room Air 11:15 (114) 01/15/19 21 05:01 01/13/19 2.0 21:24 Intake and Output 01/14/19 01/14/19 01/15/19 1515:00 23:00 07:00 IntakeIntake Total 1020 ml 350 ml BalanceBalance 1020 ml 350 ml Exam GENERAL: Thin -[place] gentleman appears comfortable at rest no acute distress VITAL SIGNS: per chart NECK: Supple. No JVD or lymphadenopathy. CARDIAC EXAM: S1, S2. No added sounds or murmurs. CHEST: clear bilaterally, No added sounds, rales or wheezes ABDOMEN: Soft, nontender. No guarding or rebound. EXTREMITIES: No cyanosis, clubbing or edema. NEUROLOGIC: Generalized weakness. No focal deficits. Vent Setting Fraction of Inspired Oxygen pe: 21 Results/Medications Result Diagram: 01/14/19 0532 01/14/19 0532 Results 24 hrs Laboratory Tests Test 01/14/19 17:11 01/14/19 20:02 01/15/19 08:29 01/15/19 11:58 Bedside Glucose 84 112 138 166 Medications Current Medications IV Flush (NS 3 ml) 3 ml PER PROTOCOL IV ; Start 01/09/19 at 19:30 Nitroglycerin (Nitroglycerin (Sl Tab) 0.4 Mg) 1 tab Q5M PRN SL .CHEST PAIN; Start 01/09/19 at 19:30 Acetaminophen (Tylenol Tab) 650 mg Q6H PRN PO .PAIN 1-3 OR TEMP Last administered on 01/10/19at 02:31; Admin Dose 650 MG; Start 01/09/19 at 19:30 Phenol (Cepastat Lozenge) 1 lozenge Q1H PRN MT SORE THROAT Last administered on 01/10/19at 14:40; Admin Dose 1 LOZENGE; Start 01/10/19 at 13:30 Guaifenesin (Robitussin Liquid Cup) 200 mg Q4H PRN PO COUGH Last administered on 01/10/19at 14:40; Admin Dose 200 MG; Start 01/10/19 at 13:30 Acetaminophen/ Hydrocodone Bitart ([place] (7.5-325)) 1 tab Q4H PRN PO MODERATE PAIN LEVEL 4-6 Last administered on 01/13/19at 07:55; Admin Dose 1 TAB; Start 01/10/19 at 14:00 Albuterol/ Ipratropium (Duoneb) 3 ml Q2H RESP THERAPY PRN HHN SHORTNESS OF BREATH; Start 01/10/19 at 15:30 Albuterol/ Ipratropium (Duoneb) 3 ml Q4H RESP THERAPY HHN Last administered on 01/15/19at 05:01; Admin Dose 3 ML; Start 01/10/19 at 17:00 Diphenhydramine HCl (Benadryl) 25 mg Q6H PRN PO ITCHING Last administered on at 22:51; Admin Dose 25 MG; Start 01/10/19 at 22:00 Morphine Sulfate (morphine) 1 mg Q4H PRN IV SEVERE PAIN LEVEL 7-10 Last administered on 01/15/19 07:03; Admin Dose 1 MG; Start 01/11/19 at 10:30 Diagnostic Test (Pha) (Accu-Chek) 1 ea 02 XX ; Start 01/13/19 at 02:00 Insulin Aspart (Novolog Insulin Pen) NOVOLOG *MILD* ALGORITHM WITH MEALS BEDTIME SC Last administered on 01/13/19at 17:18; Admin Dose 2 UNIT; Start 01/12/19 at 12:00 Insulin Human NPH (Humulin N) 14 unit BID@08,20 SC Last administered on 01/15/19at 08:41; Admin Dose 14 UNIT; Start 01/12/19 at 10:30 Miscellaneous Information (* Miscellaneous Pharmacy Order) NPH order has been placed ... ONCE XX ; Start 01/12/19 at 10:00 Miscellaneous Information 1 ea NOTE XX ; Start 01/12/19 at 10:00 Glucose (Glutose) 15 gm Q15M PRN PO DECREASED GLUCOSE; Start 01/12/19 at 10:00 Glucose (Glutose) 22.5 gm Q15M PRN PO DECREASED GLUCOSE; Start 01/12/19 at 10:00 Dextrose (D50w Syringe) 25 ml Q15M PRN IV DECREASED GLUCOSE; Start 01/12/19 at 10:00 Dextrose (D50w Syringe) 50 ml Q15M PRN IV DECREASED GLUCOSE; Start 01/12/19 at 10:00 Glucagon (Glucagen) 1 mg Q15M PRN IM DECREASED GLUCOSE; Start 01/12/19 at 10:00 Glucose (Glutose) 15 gm Q15M PRN BUCCAL DECREASED GLUCOSE; Start 01/12/19 at 10:00 Enoxaparin Sodium (Lovenox) 40 mg DAILY SC Last administered on 01/15/19 08:41; Admin Dose 40 MG; Start 01/12/19 at 10:00 Hydralazine HCl (Apresoline) 10 mg Q6 PRN IV ELEVATED BLOOD PRESSURE Last administered on 01/13/19 06:16; Admin Dose 10 MG; Start 01/13/19 at 06:00 Azithromycin (Zithromax) 250 mg DAILY PO Last administered on 01/15/19 08:32; Admin Dose 250 MG; Start 01/14/19 at 09:00 Methylprednisolone Sodium Succinate (Solu-Medrol) 40 mg 0800,2000 IV Last administered on 01/15/19 08:31; Admin Dose 40 MG; Start 01/13/19 at 20:00 Lisinopril (Zestril) 20 mg DAILY PO Last administered on 01/15/19 08:32; Admin Dose 20 MG; Start 01/15/19 at 09:00 Amlodipine Besylate (Norvasc) 2.5 mg DAILY PO Last administered on 01/15/19 08:32; Admin Dose 2.5 MG; Start 01/14/19 at 12:00 Assessment/Plan Hospital Course (Demo Recall) IMP: 1. Hypoxemic Resp Insufficiency--in a patient with stage IV sarcoidosis. Unclear trigger, though a tracheobronchitis likely 2. Stage IV sarcoidosis RECS: 1. Oxygen to maintain SpO2 90-92% 2. P.o. steroid taper. 3. BDs Q4 hours 4. Azithromycin 5. Echocardiogram for evaluation of pulmonary hypertension 6. Needs PFTs/6MWT as outpatient DC planning today. ELLIOTT MUELLER MD, [facility] Jan 15, 2019 12:22
== END 2019-01-15 12:49 | disposition home or self-care (01) | DRG 196 ==
LOC: E/R 16:48 → OBSVTOIN 19:04 → 6WM 19:04 → INTOOBSV 19:04 → 6WM 20:30
PROVIDERS: ADMIT Internal Medicine; ATTEND Hospitalist
PROC: 3E0F7GC Introduction of Other Therapeutic Substance into Respiratory Tract, Via Natural or Artificial Opening (ICD-10-PCS; principal; 2019-01-09)
DX: D86.0 Sarcoidosis of lung (principal); J96.91 Respiratory failure, unspecified with hypoxia; J45.901 Unspecified asthma with (acute) exacerbation; K86.0 Alcohol-induced chronic pancreatitis; J44.0 Chronic obstructive pulmonary disease with (acute) lower respiratory infection; J84.10 Pulmonary fibrosis, unspecified; I27.20 Pulmonary hypertension, unspecified; Z99.81 Dependence on supplemental oxygen; I10 Essential (primary) hypertension; J20.9 Acute bronchitis, unspecified; F10.20 Alcohol dependence, uncomplicated; R73.03 Prediabetes; F10.10 Alcohol abuse, uncomplicated; Y90.0 Blood alcohol level of less than 20 mg/100 ml; Z59.0 Homelessness; Z87.891 Personal history of nicotine dependence
CPT/HCPCS: 36415; 71045; 80048; 80053; 80061; 80307; 82962; 83036; 83605; 83690; 83735; 83880; 84100; 84484; 85025; 85610; 85730; 87040; 87400; 93005; 93308; 94640; 94644; 94664; 96374; 96375; 97116; 97162; 97530; J0360; J0456; J0696; J1650; J1815; J2270; J2920; J2930; J7030; J7050

== ENCOUNTER 2019-08-30 06:37 | Inpatient (IN) | payer BC ==
[~2019-08-30] VITALS: Ht 180.3 cm; Wt 58.1 kg
[~2019-08-30 06:37] MED LIST changes: +AMLO2.5T78 PO; +LISI-471 PO; -LISI10TA2 PO
[2019-08-30] MEDS ORDERED: SOD CHLORIDE 0.9% 1,000 ML IV SCH (09:15)
[2019-08-30] MEDS ORDERED: HYDROCODONE/APAP (5/325) TAB PO PRN (09:30)
[2019-08-30] MEDS ORDERED: NACL 0.9% 3 ML SYG IV SCH (09:30)
[2019-08-30] MEDS ORDERED: ONDANSETRON 4 MG INJ IV PRN (09:30)
[2019-08-30] MEDS ORDERED: morphine 2 MG INJ IV PRN (09:30)
[2019-08-30] MEDS: predniSONE 20 MG TAB PO SCH (10:13)
[2019-08-30] MEDS: AMLODIPINE 2.5 MG TAB PO SCH (10:13)
[2019-08-30] MEDS: LISINOPRIL 20 MG TAB PO SCH (10:14)
[2019-08-30 10:19] VITALS: Ht 180.3 cm; Wt 58.1 kg
[2019-08-30] MEDS ORDERED: morphine 4 MG/ML VIAL IV STA (11:09)
[2019-08-30] MEDS: HYDROmorphONE 1 MG/ML SYG IV PRN ×3 (12:50→21:04)
[2019-08-30] MEDS: DEXTROSE 5%-0.45% NACL 1,000 ML IV SCH ×2 (12:50→23:22)
[2019-08-30] MEDS ORDERED: hydrALAzine 20 MG INJ IV PRN (13:00)
[2019-08-30] MEDS ORDERED: MAGNESIUM SULFATE 2 GM/50 ML 50 ML IVPB ONE (13:30)
[2019-08-30 15:29] VITALS: BP 136/88; PULSE 66; RESP 17
[2019-08-30] MEDS ORDERED: LORAZEPAM 2 MG INJ IV PRN (17:30)
[2019-08-30] MEDS: ALBUTEROL 0.083% (NEB) 2.5 MG/3 ML AMP HHN SCH (19:42)
[2019-08-30 20:00] VITALS: BP 134/79; PULSE 59; RESP 17
[2019-08-30] MEDS: FAMOTIDINE 20 MG TAB PO SCH (20:40)
[2019-08-31] MEDS: HYDROmorphONE 1 MG/ML SYG IV PRN ×3 (01:09→09:33)
[2019-08-31 02:00] VITALS: BP 149/88; PULSE 60; RESP 17
[2019-08-31] MEDS: DEXTROSE 5%-0.45% NACL 1,000 ML IV SCH ×2 (04:30→08:41)
[2019-08-31 08:33] VITALS: BP 138/89; PULSE 57; RESP 17
[2019-08-31] MEDS: AMLODIPINE 2.5 MG TAB PO SCH (08:57)
[2019-08-31] MEDS: LISINOPRIL 20 MG TAB PO SCH (08:58)
[2019-08-31] MEDS: FAMOTIDINE 20 MG TAB PO SCH (08:59)
[2019-08-31] MEDS: predniSONE 20 MG TAB PO SCH (08:59)
[2019-08-31] MEDS ORDERED: MULTIVITAMINS 10 ML, THIAMINE 100 MG, FOLIC ACID 1 MG in SOD CHLORIDE 0.9% 1,000 ML IVPB SCH (09:00)
[2019-08-31] MEDS ORDERED: ENOXAPARIN 40 MG/0.4 ML SYG SC SCH (09:00)
[2019-08-31] MEDS: ALBUTEROL 0.083% (NEB) 2.5 MG/3 ML AMP HHN SCH ×2 (09:20→13:36)
[2019-08-31 14:20] VITALS: BP 136/89; PULSE 64; RESP 18
[2019-09-01] MEDS ORDERED: METHYLPREDNISOLONE 40 MG INJ IV SCH (09:00)
== END 2019-08-31 16:30 | disposition left against medical advice (07) | DRG 439 ==
LOC: 5EC 08:30
PROVIDERS: ADMIT Family Medicine; ATTEND Family Medicine
DX: K85.20 Alcohol induced acute pancreatitis without necrosis or infection (principal); E44.0 Moderate protein-calorie malnutrition; Z68.1 Body mass index [BMI] 19.9 or less, adult; F10.20 Alcohol dependence, uncomplicated; D86.9 Sarcoidosis, unspecified; I10 Essential (primary) hypertension; R73.03 Prediabetes; Z87.891 Personal history of nicotine dependence
CPT/HCPCS: 80053; 80061; 82150; 83036; 83690; 83735; 84100; 85025; J1170; J1650; J2270; J3411; J3475; J7030; J7042; J7512